=== PATIENT | male | born 1995 | race Caucasian/White ===

== ENCOUNTER 2016-12-03 04:50 | Inpatient (IN) | payer OTHER ==
[~2016-12-03] VITALS: Ht 185.4 cm; Wt 123.6 kg
[~2016-12-03 04:50] MED LIST: ARIP1TAB11 PO; BUSP10 PO; ESCI10TA PO
[2016-12-03 04:51] VITALS: BP 144/83; PULSE 112; RESP 18; TEMP 98; O2SAT 98
[2016-12-03] MEDS ORDERED: ARIP1TAB7 PO (05:10)
[2016-12-03] MEDS ORDERED: BUSP10TA PO (05:10)
[2016-12-03] MEDS ORDERED: PRIL10PO (05:10)
[2016-12-03] MEDS ORDERED: LEXA10TA PO (05:10)
[2016-12-03 07:30] LABS: MEAN CORPUSCULAR HGB CONC 36.4 % (32.0-36.0)
--- NOTE | 2016-12-03 07:33 | PD ---
HPI Chief Complaint: Psychiatric Symptoms Time Seen by Provider: 07:30 Travel History International Travel<30 days: No Contact w/Intl Traveler<30days: No Traveled to known affect area: No History of Present Illness HPI 21-year-old male with a history of schizophrenia presents to the emergency department voluntarily for psychiatric evaluation. The patient states that he' s had a difficult time dealing with the voices in his head recently. States that they do sometimes tell him to harm himself or harm other people. States that he would like to speak with a psychiatrist, states that he may need an adjustment of his medications. He admits to smoking methamphetamines and marijuana about one week ago. Denies alcohol use. Denies IV drug use. He complains of pain in his feet and ankles, denies any injury or trauma. Does admit to walking more recently. Denies any other medical complaints. Denies fever, chills, nausea, vomiting, chest pain, shortness of breath, abdominal pain , numbness or tingling, weakness. PFSH Past Medical History ADD: Yes ADHD: Yes Asthma: Yes Anxiety: Yes Depression: Yes Diminished Hearing: No Gastrointestinal Disorders: Yes ("CONSTIPATION" "WHEN I GET NERVOUS") Genitourinary: Yes Hypertension: Yes Neurologic: Yes (Hx. of T.B.I./A.D.D.) Respiratory: Yes Immunizations Current: Yes Migraines: Yes Schizophrenia: Yes Ulcer: Yes (PAST HX.) Past Surgical History Genitourinary Surgery: Yes Other Surgery: No (PT DOES NOT RESPOND) Social History Alcohol Use: Yes (RARE) Tobacco Use: Yes (3 PPD ) Substance Use: Yes (METH, MARIJUANA, OPIATES, BARBITUATES) Allergies-Medications (Allergen,Severity, Reaction): Coded Allergies: Augmentin (Verified Allergy, Severe, DIARRHEA, 12/03/16) Haldol (Unverified Allergy, Unknown, 12/03/16) Reported Meds & Prescriptions Reported Meds & Active Scripts Active Reported Buspirone (Buspirone HCl) 10 Mg Tab 10 Mg PO TID Prilosec (Omeprazole Magnesium) 10 Mg Pow Lexapro (Escitalopram Oxalate) 10 Mg Tab 15 Mg PO DAILY Abilify (Aripiprazole) 20 Mg Tab 20 Mg PO DAILY Review of Systems Except as stated in HPI: all other systems reviewed are Neg Physical Exam Narrative GENERAL: Well-nourished and well-developed male patient in no acute distress who is nontoxic appearing. SKIN: Warm and dry. HEAD: Normocephalic and atraumatic. EYES: No injection, drainage, or hyphema noted. PERRLA. EOMI. ENT: No nasal drainage noted. Oropharynx is clear. NECK: Supple and the trachea is midline. CARDIOVASCULAR: Regular rate and rhythm. RESPIRATORY: Breath sounds are equal bilaterally with no accessory muscle use, wheezing, rhonchi, or crackles. GASTROINTESTINAL: Abdomen is soft, non-tender, and nondistended. MUSCULOSKELETAL: No obvious deformities, swelling, cyanosis, or ecchymosis is present throughout the upper and lower extremities. Patient has full range of motion without any signs of neurovascular compromise. NEUROLOGICAL: Awake, alert, and oriented. Normal speech and gait. Cranial nerves are grossly intact. Data Data Last Documented VS Vital Signs Date Time Temp Pulse Resp B/P Pulse Ox O2 Delivery O2 Flow Rate FiO2 12/03/16 07:00 16 12/03/16 04:51 98.0 112 144/83 98 Orders Complete Blood Count With Diff (12/03/16 07:29) Comprehensive Metabolic Panel (12/03/16 07:29) Psych Screen (12/03/16 07:29) Drug Screen, Random Urine (12/03/16 07:29) Alcohol (Ethanol) (12/03/16 07:29) Labs Laboratory Tests Test 12/03/16 07:30 White Blood Count 12.7 TH/MM3 Red Blood Count 5.01 MIL/MM3 Hemoglobin 16.1 GM/DL Hematocrit 44.1 % Mean Corpuscular Volume 88.0 FL Mean Corpuscular Hemoglobin 32.0 PG Mean Corpuscular Hemoglobin 36.4 % Concent Red Cell Distribution Width 13.0 % Platelet Count 240 TH/MM3 Mean Platelet Volume 9.2 FL Neutrophils (%) (Auto) 70.2 % Lymphocytes (%) (Auto) 20.7 % Monocytes (%) (Auto) 7.8 % Eosinophils (%) (Auto) 0.7 % Basophils (%) (Auto) 0.6 % Neutrophils # (Auto) 8.9 TH/MM3 Lymphocytes # (Auto) 2.6 TH/MM3 Monocytes # (Auto) 1.0 TH/MM3 Eosinophils # (Auto) 0.1 TH/MM3 Basophils # (Auto) 0.1 TH/MM3 CBC Comment AUTO DIFF Sodium Level 139 MEQ/L Potassium Level 3.6 MEQ/L Chloride Level 105 MEQ/L Carbon Dioxide Level 23.3 MEQ/L Anion Gap 11 MEQ/L Blood Urea Nitrogen 14 MG/DL Creatinine 1.17 MG/DL Estimat Glomerular Filtration 78 ML/MIN Rate Random Glucose 82 MG/DL Calcium Level 8.8 MG/DL Total Bilirubin 0.5 MG/DL Aspartate Amino Transf 48 U/L (AST/SGOT) Alanine Aminotransferase 64 U/L (ALT/SGPT) Alkaline Phosphatase 122 U/L Total Protein 7.8 GM/DL Albumin 4.1 GM/DL Ethyl Alcohol Level LESS THAN 3 MG/DL MDM Medical Decision Making Medical Screen Exam Complete: Yes Emergency Medical Condition: Yes Differential Diagnosis Differential: Depression versus adjustment reaction versus anxiety versus PTSD versus psychosis NOS versus mood disorder NOS versus substance induced mood disorder versus ODD versus adjustment reaction versus schizophrenia versus bipolar disorder versus schizoaffective versus electrolyte abnormality versus dementia versus malingering. Narrative Course Patient presents voluntarily for psychiatric evaluation. He does complain of bilateral feet and ankle pain. Examination is unremarkable, he has full range of motion with no swelling or abnormality noted. Psych screen has been ordered. The laboratory results are unremarkable for any acute abnormalities. The patient is medically cleared for psychiatric evaluation and disposition. Diagnosis Primary Impression: Schizoaffective disorder Qualified Code: F25.9 - Schizoaffective disorder, unspecified type Tricia Johnson Dec 03, 2016 07:33
[2016-12-03 08:10] LABS: AUTOMATED NEUTROPHIL # 8.9 TH/MM3 (1.8-7.7); BASOPHIL # 0.1 TH/MM3 (0-0.2); BASOPHIL % 0.6 % (0.0-2.0); EOSINOPHIL # 0.1 TH/MM3 (0-0.4); EOSINOPHIL % 0.7 % (0.0-4.0); HEMATOCRIT 44.1 % (39.0-51.0); LYMPH % 20.7 % (9.0-44.0); LYMPHOCYTE # 2.6 TH/MM3 (1.0-4.8); MONO % 7.8 % (0.0-8.0); NEUT % 70.2 % (16.0-70.0); PLATELET COUNT 240 TH/MM3 (150-450); RED BLOOD COUNT 5.01 MIL/MM3 (4.50-5.90); WHITE BLOOD COUNT 12.7 TH/MM3 (4.0-11.0)
[2016-12-03 08:13] LABS: HEMO FLAGS AUTO DIFF
[2016-12-03 08:26] LABS: ALKALINE PHOSPHATASE 122 U/L (45-117); TOTAL BILIRUBIN ADULT 0.5 MG/DL (0.2-1.0)
[2016-12-03 08:51] LABS: ALT (GPT) 64 U/L (12-78); ANION GAP 11 MEQ/L (5-15); AST (GOT) 48 U/L (15-37); BICARBONATE 23.3 MEQ/L (21.0-32.0); BLOOD UREA NITROGEN 14 MG/DL (7-18); CHLORIDE 105 MEQ/L (98-107); GLOMERULAR FILTRATION RATE 78 ML/MIN (>89); POTASSIUM 3.6 MEQ/L (3.5-5.1); SODIUM (NA) 139 MEQ/L (136-145)
[2016-12-03 09:06] LABS: SCAN/DIFF AUTO DIFF CONFIRMED
[2016-12-03 10:00] VITALS: BP 136/84; PULSE 84; RESP 18; TEMP 99; O2SAT 98
[2016-12-03 14:00] VITALS: BP 145/68; PULSE 85; RESP 18
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
[2016-12-03] MEDS ORDERED: ALUMINUM/MAGNESIUM/SIMETH 30 ML CUP PO PRN (15:00)
[2016-12-03] MEDS ORDERED: BENZTROPINE MESYLATE 1 MG TAB PO PRN (15:00)
[2016-12-03] MEDS ORDERED: LORazepam 2 MG/ML VIAL IM PRN (15:00)
[2016-12-03] MEDS ORDERED: MAGNESIUM HYDROXIDE SUSP 30 ML CUP PO PRN (15:00)
[2016-12-03] MEDS ORDERED: BENZTROPINE MESYLATE 2 MG/2 ML VIAL IM PRN (15:00)
[2016-12-03] MEDS: busPIRone HCL 10 MG TAB PO SCH (17:59)
[2016-12-03 18:35] VITALS: BP 119/84; PULSE 80; RESP 18; TEMP 98.1; O2SAT 95
[2016-12-03] MEDS: diphenhydrAMINE HCL 50 MG CAP PO PRN (20:05)
[2016-12-03] MEDS: ACETAMINOPHEN 325 MG TAB PO PRN (20:05)
[2016-12-04 04:41] VITALS: BP 114/57; PULSE 77; RESP 18; TEMP 96.9; O2SAT 96
[2016-12-04 07:08] LABS: AUTOMATED NEUTROPHIL # 6.4 TH/MM3 (1.8-7.7); BASOPHIL % 0.3 % (0.0-2.0); EOSINOPHIL # 0.1 TH/MM3 (0-0.4); EOSINOPHIL % 1.2 % (0.0-4.0); HEMATOCRIT 42.9 % (39.0-51.0); HEMO FLAGS DIFF FINAL; LYMPH % 31.8 % (9.0-44.0); LYMPHOCYTE # 3.4 TH/MM3 (1.0-4.8); MEAN CELL VOLUME 87.9 FL (80.0-100.0); MEAN CORPUSCULAR HEMOGLOBIN 30.9 PG (27.0-34.0); MEAN CORPUSCULAR HGB CONC 35.1 % (32.0-36.0); MONO % 6.3 % (0.0-8.0); NEUT % 60.4 % (16.0-70.0); PLATELET COUNT 215 TH/MM3 (150-450); RED BLOOD COUNT 4.87 MIL/MM3 (4.50-5.90); RED CELL DISTRIBUTION WIDTH 13.1 % (11.6-17.2); WHITE BLOOD COUNT 10.6 TH/MM3 (4.0-11.0)
[2016-12-04 07:37] LABS: ANION GAP 10 MEQ/L (5-15); AST (GOT) 24 U/L (15-37); BICARBONATE 24.1 MEQ/L (21.0-32.0); BLOOD UREA NITROGEN 8 MG/DL (7-18); CHLORIDE 108 MEQ/L (98-107); GLOMERULAR FILTRATION RATE 98 ML/MIN (>89); POTASSIUM 3.3 MEQ/L (3.5-5.1); SODIUM (NA) 142 MEQ/L (136-145)
[2016-12-04 07:47] LABS: ALKALINE PHOSPHATASE 109 U/L (45-117); ALT (GPT) 48 U/L (12-78); LDL CHOLESTEROL 116 MG/DL (0-99); TOTAL BILIRUBIN ADULT 0.5 MG/DL (0.2-1.0)
[2016-12-04] MEDS: ESCITALOPRAM OXALATE 10 MG TAB PO SCH (08:43)
[2016-12-04] MEDS: LITHIUM CARBONATE 300 MG TAB PO SCH ×2 (08:43→20:57)
[2016-12-04] MEDS: busPIRone HCL 10 MG TAB PO SCH ×3 (08:43→17:47)
[2016-12-04] MEDS: NICOTINE 21 MG/24 HR PATCH T-DERMAL SCH (09:00)
[2016-12-04] MEDS: REMOVE OLD PATCH T-DERMAL SCH (09:00)
[2016-12-04 09:01] LABS: HEMOGLOBIN A1b 0.9 %; HEMOGLOBIN Ao 86.5 %; HEMOGLOBIN LA1C 1.7 %; HEMOGLOBIN P3 3.4 %
[2016-12-04] MEDS ORDERED: INFLUENZA VIRUS VACCINE (QUADRIVALENT) 0.5 ML SYR IM ONE (10:00)
--- NOTE | 2016-12-04 11:21 | HHI.PYPN ---
Subjective Remarks Patient was seen and case discussed with nursing. Patient is apathetic and a poor historian. Answers most questions with I don't remember. He is compliant with his medications here.'s poor insight into the reasons for his admission. Claims that his auditory hallucinations are gone. Denies any paranoia. Largely seclusive to self. Denies suicidal ideations thought or plan. Potassium was low this morning at 3.3 Objective Alert: Yes [place]: Person, Place, Date Mood: Depressed Affect: Restricted Memory Intact: Immediate Hallucinations: Auditory (denies) Delusions: No Delusion Type: Other Suicidal: Ideation (denies) Homicidal: Ideation Insight/Judgement Poor Labs Test 12/04/16 06:13 White Blood Count 10.6 TH/MM3 Red Blood Count 4.87 MIL/MM3 Hemoglobin 15.0 GM/DL Hematocrit 42.9 % Mean Corpuscular Volume 87.9 FL Mean Corpuscular Hemoglobin 30.9 PG Mean Corpuscular Hemoglobin 35.1 % Concent Red Cell Distribution Width 13.1 % Platelet Count 215 TH/MM3 Mean Platelet Volume 8.0 FL Neutrophils (%) (Auto) 60.4 % Lymphocytes (%) (Auto) 31.8 % Monocytes (%) (Auto) 6.3 % Eosinophils (%) (Auto) 1.2 % Basophils (%) (Auto) 0.3 % Neutrophils # (Auto) 6.4 TH/MM3 Lymphocytes # (Auto) 3.4 TH/MM3 Monocytes # (Auto) 0.7 TH/MM3 Eosinophils # (Auto) 0.1 TH/MM3 Basophils # (Auto) 0.0 TH/MM3 CBC Comment DIFF FINAL Differential Comment Sodium Level 142 MEQ/L Potassium Level 3.3 MEQ/L Chloride Level 108 MEQ/L Carbon Dioxide Level 24.1 MEQ/L Anion Gap 10 MEQ/L Blood Urea Nitrogen 8 MG/DL Creatinine 0.96 MG/DL Estimat Glomerular Filtration 98 ML/MIN Rate Random Glucose 69 MG/DL Hemoglobin A1c 4.9 % Calcium Level 8.9 MG/DL Total Bilirubin 0.5 MG/DL Aspartate Amino Transf 24 U/L (AST/SGOT) Alanine Aminotransferase 48 U/L (ALT/SGPT) Alkaline Phosphatase 109 U/L Total Protein 7.0 GM/DL Albumin 3.7 GM/DL Triglycerides Level 237 MG/DL Cholesterol Level 185 MG/DL LDL Cholesterol 116 MG/DL HDL Cholesterol 22.0 MG/DL Cholesterol/HDL Ratio 8.40 RATIO Thyroid Stimulating Hormone 0.397 uIU/ML 3rd Gen Vitals/IOs Vital Signs Date Time Temp Pulse Resp B/P Pulse Ox O2 Delivery O2 Flow Rate FiO2 12/04/16 04:41 96.9 77 18 114/57 96 12/03/16 10:00 Room Air Assessment & Plan Problem List: (1) Schizoaffective disorder ICD Code: F25.9 (2) Polysubstance dependence ICD Code: F19.20 Assessment & Plan Potassium chloride 20 mEq 1. Repeat potassium at 4 PM. Magnesium level. Consult medicine. Justification for Cont. Inpt. Patient will decompensate in a less restrictive setting Request HC Surrog/Guard Advoc?: No Problem Qualifiers (1) Schizoaffective disorder: Qualified Code: F25.0 - Schizoaffective disorder, bipolar type Zohaib Lackey DO Dec 04, 2016 11:21
[2016-12-04] MEDS ORDERED: POTASSIUM CHLORIDE 20 MEQ CONTROLLED RELEASE TAB PO ONE (11:30)
--- NOTE | 2016-12-04 14:24 | PD.CONS ---
[facility] Reason for Consult Hypokalemia Primary Care Physician Unknown Diagnoses: History of Present Illness This is a 21-year-old male patient with past medical history which includes ADD , ADHD, anxiety/depression, schizophrenia and asthma. Patient is currently inpatient psychiatric center with consulted for hypokalemia. Patient's potassium level is 3.3. Patient is a poor historian information gathered from patient as well as prior computerized charting. Patient evaluated in room resting in bed reports feeling well offers no complaints at this time. Patient denies shortness of breath chest pain nausea vomiting diarrhea. Patient is concerned as he gets constipated when he is nervous and is uncomfortable no psychiatric unit. Patient denies shortness of breath at this time. Patient reports he does not have a rescue inhaler at home but believes he was diagnosed with asthma as a child. Review of Systems Except as stated in HPI: all other systems reviewed are Neg Past Family Social History Allergies: Coded Allergies: Augmentin (Verified Allergy, Severe, DIARRHEA, 12/03/16) Haldol (Unverified Allergy, Unknown, 12/03/16) Past Medical History ADD, ADHD, anxiety/depression, schizophrenia and asthma Past Surgical History Denies prior surgeries Reported Medications Buspirone (Buspirone HCl) 10 Mg Tab 10 Mg PO TID Prilosec (Omeprazole Magnesium) 10 Mg Pow Lexapro (Escitalopram Oxalate) 10 Mg Tab 15 Mg PO DAILY Abilify (Aripiprazole) 20 Mg Tab 20 Mg PO DAILY Active Ordered Medications Current Medications Medications (Trade) Dose Ordered Sig/Cortney Route Start Time Stop Time Status Last Admin (Abilify) 20 mg DAILY PO 12/04/16 09:00 12/04/16 08:43 (Buspar) 10 mg TID PO 12/03/16 18:00 12/04/16 12:40 (Lexapro) 15 mg DAILY PO 12/04/16 09:00 12/04/16 08:43 (Lithotabs) 300 mg Q12HR PO 12/04/16 09:00 12/04/16 08:43 (Ativan) 1 mg Q6H PRN PO 12/03/16 15:00 (Ativan Inj) 1 mg Q6H PRN IM 12/03/16 15:00 (Benadryl) 50 mg HS PRN PO 12/03/16 21:00 12/03/16 20:05 (Tylenol) 650 mg Q4H PRN PO 12/03/16 15:00 12/03/16 20:05 (Milk Of Magnesia Liq) 30 ml DAILY PRN PO 12/03/16 15:00 (Mag-Al Plus Susp Liq) 30 ml Q6H PRN PO 12/03/16 15:00 (Habitrol 21 Mg Patch.24 Hr) 1 patch DAILY T-DERMAL 12/04/16 09:00 (Cogentin) 1 mg Q12H PRN PO 12/03/16 15:00 (Cogentin Inj) 1 mg Q12H PRN IM 12/03/16 15:00 Miscellaneous Information 1 DAILY T-DERMAL 12/04/16 09:00 Family History Denies family medical history Social History Denies EtOH use Tobacco use smokes 2 packs cigarettes a day for the past 2 years Illicit drug use Reports he smokes methamphetamines and marijuana Physical Exam Vital Signs Vital Signs Date Time Temp Pulse Resp B/P Pulse Ox O2 Delivery O2 Flow Rate FiO2 12/04/16 04:41 96.9 77 18 114/57 96 12/03/16 18:35 98.1 80 18 119/84 95 Physical Exam GENERAL: This is an obese 21-year-old male patient, in no apparent distress. SKIN: No rashes, ecchymoses or lesions. Cool and dry. EYES: Extraocular motions intact. No scleral icterus. No injection or drainage. CARDIOVASCULAR: Regular rate and rhythm without murmurs, gallops, or rubs. RESPIRATORY: Few scattered expiratory wheezes GASTROINTESTINAL: Abdomen soft, non-tender, nondistended. No guarding. Bowel sounds present in all 4 quadrants normoactive MUSCULOSKELETAL: Extremities without clubbing, cyanosis, or edema. No joint tenderness, effusion, or edema noted. No calf tenderness. Negative Homans sign bilaterally. NEUROLOGICAL: Awake and alert. No focal deficits appreciated. Motor and sensory grossly within normal limits. Five out of 5 muscle strength in all muscle groups. Normal speech. Laboratory Laboratory Tests Test 12/04/16 06:13 White Blood Count 10.6 Red Blood Count 4.87 Hemoglobin 15.0 Hematocrit 42.9 Mean Corpuscular Volume 87.9 Mean Corpuscular Hemoglobin 30.9 Mean Corpuscular Hemoglobin 35.1 Concent Red Cell Distribution Width 13.1 Platelet Count 215 Mean Platelet Volume 8.0 Neutrophils (%) (Auto) 60.4 Lymphocytes (%) (Auto) 31.8 Monocytes (%) (Auto) 6.3 Eosinophils (%) (Auto) 1.2 Basophils (%) (Auto) 0.3 Neutrophils # (Auto) 6.4 Lymphocytes # (Auto) 3.4 Monocytes # (Auto) 0.7 Eosinophils # (Auto) 0.1 Basophils # (Auto) 0.0 CBC Comment DIFF FINAL Differential Comment Sodium Level 142 Potassium Level 3.3 Chloride Level 108 Carbon Dioxide Level 24.1 Anion Gap 10 Blood Urea Nitrogen 8 Creatinine 0.96 Estimat Glomerular Filtration 98 Rate Random Glucose 69 Hemoglobin A1c 4.9 Calcium Level 8.9 Magnesium Level 2.1 Total Bilirubin 0.5 Aspartate Amino Transf 24 (AST/SGOT) Alanine Aminotransferase 48 (ALT/SGPT) Alkaline Phosphatase 109 Total Protein 7.0 Albumin 3.7 Triglycerides Level 237 Cholesterol Level 185 LDL Cholesterol 116 HDL Cholesterol 22.0 Cholesterol/HDL Ratio 8.40 Thyroid Stimulating Hormone 0.397 3rd Gen Result Diagram: 12/04/1613 12/04/16612 Assessment and Plan Assessment and Plan This is a 21-year-old male patient with past medical history which includes ADD , ADHD, anxiety/depression, schizophrenia and asthma. Patient is currently inpatient psychiatric center with consulted for hypokalemia. Patient's potassium level is 3.3. Hypokalemia potassium 3.3 replaced by psychiatric team with 20 mEq potassium Magnesium checked 2.1 Asthma albuterol inhaler as needed Constipation MiraLAX daily hold for diarrhea or loose stools Tobacco abuse patient counseled encouraged to abstain DVT prophylaxis patient is ambulatory Discussed plan of care with patient RN and Dr. Ruth Patient appears medically stable at this time will sign off- if patient's condition changes or further assistance is needed please reconsult Record patient follow-up with PCP after discharge Discussed Condition With The exam, history, and the medical decision-making described in the above note were completed with the assistance of the mid-level provider. I reviewed and agree with the findings presented. I attest that I had a [id number] encounter with the patient on the same day, and personally performed and documented my assessment and findings in the medical record. Noemi Navarrete Dec 04, 2016 14:24 Scotty Ruth MD Dec 12, 2016 16:05
[2016-12-04] MEDS ORDERED: ALBUTEROL SULFATE 90 MCG/ACT HFA 8 GM INHALER INH PRN (14:30)
[2016-12-04] MEDS: ACETAMINOPHEN 325 MG TAB PO PRN (18:31)
[2016-12-04 18:52] VITALS: BP 131/67; PULSE 82; RESP 16; TEMP 98; O2SAT 97
[2016-12-04] MEDS: diphenhydrAMINE HCL 50 MG CAP PO PRN (20:58)
[2016-12-04] MEDS: LORazepam 1 MG TAB PO PRN (22:51)
[2016-12-05 05:06] VITALS: BP 106/61; PULSE 65; RESP 18; TEMP 97.8; O2SAT 97
[2016-12-05] MEDS: REMOVE OLD PATCH T-DERMAL SCH (08:18)
[2016-12-05] MEDS: NICOTINE 21 MG/24 HR PATCH T-DERMAL SCH (08:18)
[2016-12-05] MEDS: ESCITALOPRAM OXALATE 10 MG TAB PO SCH (08:19)
[2016-12-05] MEDS: busPIRone HCL 10 MG TAB PO SCH (08:19)
[2016-12-05] MEDS: LITHIUM CARBONATE 300 MG TAB PO SCH ×2 (08:19→20:08)
[2016-12-05] MEDS: POLYETHYLENE GLYCOL 17 GM PKG PO SCH (08:24)
--- NOTE | 2016-12-05 10:42 | HHI.PYPN ---
Subjective Remarks Patient seen and examined with nurse. Chart reviewed. Case discussed with nursing staff. On my examination today, the patient reports that his mood feels more stable on lithium. He says that his auditory hallucinations disappeared around yesterday midday. No visual hallucinations or other hallucinatory material. He denies suicidal or homicidal ideation. He does complain of ongoing anxiety and says that he doesn't feel like the BuSpar has ever really helped him. He's tried this medication at a dose of 20 mg 3 times a day before without much additional benefit. He has also tried Klonopin and Atarax without a lot of benefit. We discuss possible strategies for managing ongoing anxiety and settle on off label use of gabapentin. Risks and benefits of this medication discussed with patient. Denies side effects from medications currently. Review of Systems Other No somatic complaints today Objective Alert: Yes [place]: Person, Place, Date Mood: Depressed (improving) Affect: Blunted Memory Intact: Comment (intact on clinical exam) Hallucinations: Other (denies AVH) Delusions: No Delusion Type: Other (no evident delusional material) Suicidal: Ideation (denies suicidal ideation) Homicidal: Ideation (denies homicidal ideation) Insight/Judgement Fair Remarks Thought process linear. Speech within normal limits for rate, tone and volume. No motoric abnormalities noted. Labs Labs reviewed. No new labs. Vitals/IOs Vital Signs Date Time Temp Pulse Resp B/P Pulse Ox O2 Delivery O2 Flow Rate FiO2 12/05/16 05:06 97.8 65 18 106/61 97 12/03/16 10:00 Room Air Assessment & Plan Problem List: (1) Schizoaffective disorder ICD Code: F25.9 (2) Polysubstance dependence ICD Code: F19.20 Assessment & Plan Discontinue BuSpar per patient preference and add gabapentin for management of anxiety. Continue Abilify and Lexapro as ordered. Continue lithium as ordered and plan to check a lithium level and BMP middle of the week. Continue other medications and care as ordered. Hospitalist clinical practice consultant input noted and appreciated. Justification for Cont. Inpt. Monitoring for safety. Medication changes in process. Risk for decompensation pending psychiatric stabilization. Discharge Planning Pending psychiatric stabilization. Request HC Surrog/Guard Advoc?: No Problem Qualifiers (1) Schizoaffective disorder: Qualified Code: F25.0 - Schizoaffective disorder, bipolar type Jae Tucker MD Dec 05, 2016 10:42
[2016-12-05] MEDS: GABAPENTIN 300 MG CAP PO SCH ×2 (12:10→17:09)
[2016-12-05] MEDS: LORazepam 1 MG TAB PO PRN ×2 (14:02→20:07)
[2016-12-05 18:36] VITALS: BP 125/77; PULSE 83; RESP 17; TEMP 98.4; O2SAT 96
[2016-12-05] MEDS: ACETAMINOPHEN 325 MG TAB PO PRN (20:08)
[2016-12-05] MEDS: diphenhydrAMINE HCL 50 MG CAP PO PRN (20:08)
[2016-12-06 05:25] VITALS: BP 126/62; PULSE 70; RESP 18; TEMP 97.2; O2SAT 96
[2016-12-06] MEDS: REMOVE OLD PATCH T-DERMAL SCH (09:00)
[2016-12-06] MEDS: POLYETHYLENE GLYCOL 17 GM PKG PO SCH (09:00)
[2016-12-06] MEDS: ESCITALOPRAM OXALATE 10 MG TAB PO SCH (09:32)
[2016-12-06] MEDS: LITHIUM CARBONATE 300 MG TAB PO SCH ×2 (09:32→20:22)
[2016-12-06] MEDS: GABAPENTIN 300 MG CAP PO SCH ×3 (09:32→18:48)
[2016-12-06] MEDS: NICOTINE 21 MG/24 HR PATCH T-DERMAL SCH (09:33)
--- NOTE | 2016-12-06 14:56 | HHI.PYPN ---
Subjective Remarks Patient seen and examined with counselor. Chart reviewed. Case discussed with counselor and nursing staff in treatment team. On my examination today, the patient reports that he feels much improved. He feels like his mood is stabilized and his anxiety is significantly lessened since the gabapentin was added. He feels like he is on the right medication regimen now. He denies side effects from medications. He denies suicidal or homicidal ideation. He denies any audiovisual hallucinations. There is no evidence of any thought disorder or psychosis otherwise. I did note in the chart that the patient didn' t keep breakfast or lunch today, but he says sometimes it is his habit to take a single large meal, and in fact he requests double portions. Luis was hoping for discharge today but is willing to wait told tomorrow so that we might check a lithium level and communicate with patient's parents regarding discharge planning. Review of Systems Other No somatic complaints today Objective Alert: Yes [place]: Person, Place, Date Mood: Other (reports good mood) Affect: Blunted Memory Intact: Comment (intact on clinical exam) Hallucinations: Other (again denies audiovisual hallucinations) Delusions: No Delusion Type: Other (no delusional material) Suicidal: Ideation (denies suicidal ideation) Homicidal: Ideation (denies homicidal ideation) Insight/Judgement Fair Remarks No abnormal motor movements noted. Thought process linear. Speech within normal limits for rate, tone and volume. Labs Labs reviewed. No new labs. Vitals/IOs Vital Signs Date Time Temp Pulse Resp B/P Pulse Ox O2 Delivery O2 Flow Rate FiO2 12/06/16 05:25 97.2 70 18 126/62 96 12/03/16 10:00 Room Air Assessment & Plan Problem List: (1) Schizoaffective disorder ICD Code: F25.9 (2) Polysubstance dependence ICD Code: F19.20 Assessment & Plan Patient feels like current psychotropics are working well. Continue them as ordered. Check a lithium level and BMP tomorrow morning. Continue other medications and care as ordered. Justification for Cont. Inpt. Discharge planning. Discharge Planning Monitor overnight. Counselor reach out to family. Possible discharge tomorrow. Request HC Surrog/Guard Advoc?: No Problem Qualifiers (1) Schizoaffective disorder: Qualified Code: F25.0 - Schizoaffective disorder, bipolar type Jae Tucker MD Dec 06, 2016 14:56
[2016-12-06] MEDS: ACETAMINOPHEN 325 MG TAB PO PRN (20:22)
[2016-12-07 06:11] VITALS: BP 117/71; PULSE 79; RESP 18; TEMP 98.1; O2SAT 98
[2016-12-07] MEDS: REMOVE OLD PATCH T-DERMAL SCH (09:00)
[2016-12-07] MEDS: POLYETHYLENE GLYCOL 17 GM PKG PO SCH (09:00)
[2016-12-07 09:10] LABS: BICARBONATE 29.2 MEQ/L (21.0-32.0); POTASSIUM 3.9 MEQ/L (3.5-5.1)
[2016-12-07] MEDS: GABAPENTIN 300 MG CAP PO SCH ×2 (09:13→13:19)
[2016-12-07] MEDS: ESCITALOPRAM OXALATE 10 MG TAB PO SCH (09:13)
[2016-12-07] MEDS: NICOTINE 21 MG/24 HR PATCH T-DERMAL SCH (09:14)
[2016-12-07] MEDS: LITHIUM CARBONATE 300 MG TAB PO SCH (09:14)
[2016-12-07] MEDS ORDERED: LITH300T3 PO (14:17)
[2016-12-07] MEDS ORDERED: NEUR300C PO (14:17)
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
== END 2016-12-07 14:50 | disposition home or self-care (01) | DRG 885 ==
LOC: NEPA 04:50 → NEDA 14:46 → H260 15:26
PROVIDERS: ADMIT Psychiatry & Neurology Psychiatry; ATTEND Psychiatry & Neurology Psychiatry
DX: F25.0 Schizoaffective disorder, bipolar type (principal); I10 Essential (primary) hypertension; F90.9 Attention-deficit hyperactivity disorder, unspecified type; E87.6 Hypokalemia; F15.90 Other stimulant use, unspecified, uncomplicated; K59.00 Constipation, unspecified; J45.909 Unspecified asthma, uncomplicated; F41.9 Anxiety disorder, unspecified; F17.210 Nicotine dependence, cigarettes, uncomplicated
CPT/HCPCS: 80048; 80053; 80061; 80178; 80320; 83036; 83735; 84443; 85025; 99284; Q0163

== ENCOUNTER 2017-04-04 16:13 | Inpatient (IN) | payer MEDICAID, OTHER ==
[~2017-04-04] VITALS: Ht 193 cm; Wt 122.2 kg
[~2017-04-04 16:13] MED LIST changes: -ARIP1TAB11 PO; +ARIP1TAB7 PO; -BUSP10 PO; -ESCI10TA PO; +LEXA10TA PO; +LITH300T3 PO; +NEUR300C PO; +PRIL10PO
[2017-04-04 16:16] VITALS: BP 158/100; PULSE 102; RESP 24; TEMP 98.4; O2SAT 97
[2017-04-04 17:20] VITALS: BP 139/86; PULSE 90; RESP 18; O2SAT 97
--- NOTE | 2017-04-04 17:34 | PD ---
HPI Chief Complaint: Psychiatric Symptoms Time Seen by Provider: 17:07 Travel History International Travel<30 days: No Contact w/Intl Traveler<30days: No Traveled to known affect area: No History of Present Illness HPI The patient is a 21-year-old male who presents emergency department with his mother for psychiatric evaluation. The patient has a history of schizophrenia but is intermittently compliant with his medications which include Prozac, Abilify, Neurontin, Prilosec, and lithium. The patient is followed at [facility] by the mid-level provider. The patient has had a change in his voice, some type of accent according to the mother for the last 3 weeks. The patient is also been hearing voices which tell him to harm himself, he has had intermittent thoughts of suicide, last suicidal ideation was just prior to arrival while at home. He denies any illicit drug use or alcohol use. He denies any visual hallucinations. Symptoms are moderate, exacerbated by history of schizophrenia and noncompliance, and there are no current alleviating factors. He denies any current physical complaints. PFSH Past Medical History ADD: Yes ADHD: Yes Asthma: Yes Anxiety: Yes Depression: Yes Diabetes: No (see EMR ) Diminished Hearing: No Gastrointestinal Disorders: Yes ("CONSTIPATION" "WHEN I GET NERVOUS") Genitourinary: Yes Hypertension: Yes Neurologic: Yes (Hx. of T.B.I./A.D.D.) Respiratory: Yes Immunizations Current: Yes Migraines: Yes Schizophrenia: Yes Ulcer: Yes (PAST HX.) Tetanus Vaccination: < 5 Years Influenza Vaccination: Yes Past Surgical History Surgical History: No Previous Surgery Genitourinary Surgery: Yes Social History Alcohol Use: Yes (RARE) Tobacco Use: Yes (3 PPD ) Substance Use: Yes Allergies-Medications (Allergen,Severity, Reaction): Coded Allergies: Augmentin (Verified Allergy, Severe, DIARRHEA, 04/04/17) Haldol (Unverified Allergy, Unknown, 04/04/17) Reported Meds & Prescriptions Reported Meds & Active Scripts Active [place] Carbonate 300 Mg Tab 300 Mg PO Q12HR 15 Days Neurontin (Gabapentin) 300 Mg Cap 300 Mg PO TID 15 Days Reported Prilosec (Omeprazole Magnesium) 10 Mg Pow Lexapro (Escitalopram Oxalate) 10 Mg Tab 15 Mg PO DAILY Abilify (Aripiprazole) 20 Mg Tab 20 Mg PO DAILY Review of Systems Except as stated in HPI: all other systems reviewed are Neg General / Constitutional: No: Fever HENT: No: Lightheadedness Cardiovascular: No: Chest Pain or Discomfort Respiratory: No: Shortness of Breath Gastrointestinal: No: Nausea, Vomiting, Abdominal Pain Musculoskeletal: No: Weakness Psychiatric: Positive: Suicidal Ideations, Disorder of Thought Physical Exam Narrative GENERAL: Awake, alert, pleasant 21-year-old male who appears his stated age and is in no acute respiratory distress. SKIN: Focused skin assessment warm/dry. HEAD: Atraumatic. Normocephalic. EYES: Pupils equal and round. No scleral icterus. No injection or drainage. ENT: No nasal bleeding or discharge. Mucous membranes pink and moist. NECK: Trachea midline. No JVD. CARDIOVASCULAR: Regular rate and rhythm. No murmur appreciated. RESPIRATORY: No accessory muscle use. Clear to auscultation. Breath sounds equal bilaterally. GASTROINTESTINAL: Abdomen soft, non-tender, nondistended. No rebound tenderness. MUSCULOSKELETAL: No obvious deformities. No clubbing. No cyanosis. No edema. NEUROLOGICAL: Awake and alert. No obvious cranial nerve deficits. Motor grossly within normal limits. Normal speech. Nonfocal. PSYCHIATRIC: Odd affect. Accent seems to wax and wane. Data Data Last Documented VS Vital Signs Date Time Temp Pulse Resp B/P Pulse Ox O2 Delivery O2 Flow Rate FiO2 04/04/17 17:20 90 18 139/86 97 Room Air 04/04/17 16:16 98.4 Orders Complete Blood Count With Diff (04/04/17 17:25) Comprehensive Metabolic Panel (04/04/17 17:25) Thyroid Stimulating Hormone (04/04/17 17:25) Psych Screen (04/04/17 17:25) Ismay (Li) (04/04/17 17:25) Drug Screen, Random Urine (04/04/17 17:25) Labs Laboratory Tests Test 04/04/17 04/04/17 17:25 17:35 White Blood Count 11.7 TH/MM3 Red Blood Count 5.36 MIL/MM3 Hemoglobin 16.4 GM/DL Hematocrit 48.0 % Mean Corpuscular Volume 89.6 FL Mean Corpuscular Hemoglobin 30.6 PG Mean Corpuscular Hemoglobin 34.1 % Concent Red Cell Distribution Width 13.3 % Platelet Count 256 TH/MM3 Mean Platelet Volume 8.3 FL Neutrophils (%) (Auto) 73.0 % Lymphocytes (%) (Auto) 18.4 % Monocytes (%) (Auto) 7.5 % Eosinophils (%) (Auto) 0.8 % Basophils (%) (Auto) 0.3 % Neutrophils # (Auto) 8.6 TH/MM3 Lymphocytes # (Auto) 2.2 TH/MM3 Monocytes # (Auto) 0.9 TH/MM3 Eosinophils # (Auto) 0.1 TH/MM3 Basophils # (Auto) 0.0 TH/MM3 CBC Comment DIFF FINAL Differential Comment Sodium Level 140 MEQ/L Potassium Level 3.7 MEQ/L Chloride Level 105 MEQ/L Carbon Dioxide Level 27.8 MEQ/L Anion Gap 7 MEQ/L Blood Urea Nitrogen 12 MG/DL Creatinine 1.01 MG/DL Estimat Glomerular Filtration 92 ML/MIN Rate Random Glucose 77 MG/DL Calcium Level 9.5 MG/DL Aspartate Amino Transf 23 U/L (AST/SGOT) Alanine Aminotransferase 38 U/L (ALT/SGPT) Albumin 4.3 GM/DL Urine Opiates Screen NEG Urine Barbiturates Screen NEG Urine Amphetamines Screen NEG Urine Benzodiazepines Screen NEG Urine Cocaine Screen NEG Urine Cannabinoids Screen POS [place]may Level 0.2 MEQ/L MDM Medical Decision Making Medical Screen Exam Complete: Yes Emergency Medical Condition: Yes Medical Record Reviewed: Yes Interpretation(s) Laboratory Tests Test 04/04/17 04/04/17 17:25 17:35 White Blood Count 11.7 TH/MM3 Red Blood Count 5.36 MIL/MM3 Hemoglobin 16.4 GM/DL Hematocrit 48.0 % Mean Corpuscular Volume 89.6 FL Mean Corpuscular Hemoglobin 30.6 PG Mean Corpuscular Hemoglobin 34.1 % Concent Red Cell Distribution Width 13.3 % Platelet Count 256 TH/MM3 Mean Platelet Volume 8.3 FL Neutrophils (%) (Auto) 73.0 % Lymphocytes (%) (Auto) 18.4 % Monocytes (%) (Auto) 7.5 % Eosinophils (%) (Auto) 0.8 % Basophils (%) (Auto) 0.3 % Neutrophils # (Auto) 8.6 TH/MM3 Lymphocytes # (Auto) 2.2 TH/MM3 Monocytes # (Auto) 0.9 TH/MM3 Eosinophils # (Auto) 0.1 TH/MM3 Basophils # (Auto) 0.0 TH/MM3 CBC Comment DIFF FINAL Differential Comment Sodium Level 140 MEQ/L Potassium Level 3.7 MEQ/L Chloride Level 105 MEQ/L Carbon Dioxide Level 27.8 MEQ/L Anion Gap 7 MEQ/L Blood Urea Nitrogen 12 MG/DL Creatinine 1.01 MG/DL Estimat Glomerular Filtration 92 ML/MIN Rate Random Glucose 77 MG/DL Calcium Level 9.5 MG/DL Aspartate Amino Transf 23 U/L (AST/SGOT) Alanine Aminotransferase 38 U/L (ALT/SGPT) Albumin 4.3 GM/DL Urine Opiates Screen NEG Urine Barbiturates Screen NEG Urine Amphetamines Screen NEG Urine Benzodiazepines Screen NEG Urine Cocaine Screen NEG Urine Cannabinoids Screen POS Ismay Level 0.2 MEQ/L Differential Diagnosis Differential diagnosis includes schizophrenia, schizoaffective disorder, psychosis, noncompliance, subtherapeutic lithium level, supratherapeutic lithium level. Narrative Course Labs were drawn and sent. Psychiatric evaluation was ordered. The patient's labs were noted, positive for marijuana, and lithium was subtherapeutic at 0.2. The patient is medically clear to be evaluated by psychiatry. Disposition as per psych. Diagnosis Primary Impression: Schizophrenia Qualified Code: F20.89 - Other schizophrenia Condition: Stable Charles Leone MD Apr 04, 2017 17:34
[2017-04-04 18:00] LABS: AUTOMATED NEUTROPHIL # 8.6 TH/MM3 (1.8-7.7); BASOPHIL % 0.3 % (0.0-2.0); EOSINOPHIL # 0.1 TH/MM3 (0-0.4); EOSINOPHIL % 0.8 % (0.0-4.0); HEMO FLAGS DIFF FINAL; LYMPH % 18.4 % (9.0-44.0); LYMPHOCYTE # 2.2 TH/MM3 (1.0-4.8); MEAN CELL VOLUME 89.6 FL (80.0-100.0); MEAN CORPUSCULAR HEMOGLOBIN 30.6 PG (27.0-34.0); MEAN CORPUSCULAR HGB CONC 34.1 % (32.0-36.0); MONO % 7.5 % (0.0-8.0); PLATELET COUNT 256 TH/MM3 (150-450); RED BLOOD COUNT 5.36 MIL/MM3 (4.50-5.90); RED CELL DISTRIBUTION WIDTH 13.3 % (11.6-17.2); WHITE BLOOD COUNT 11.7 TH/MM3 (4.0-11.0)
[2017-04-04 18:10] LABS: AMPHETAMINE, URINE NEG (NEG); BARBITURATES, URINE NEG (NEG); COCAINE, URINE NEG (NEG)
[2017-04-04 18:30] LABS: ALT (GPT) 38 U/L (12-78); ANION GAP 7 MEQ/L (5-15); AST (GOT) 23 U/L (15-37); BICARBONATE 27.8 MEQ/L (21.0-32.0); BLOOD UREA NITROGEN 12 MG/DL (7-18); CHLORIDE 105 MEQ/L (98-107); GLOMERULAR FILTRATION RATE 92 ML/MIN (>89); POTASSIUM 3.7 MEQ/L (3.5-5.1); SODIUM (NA) 140 MEQ/L (136-145)
[2017-04-04 18:40] LABS: ALKALINE PHOSPHATASE 115 U/L (45-117); TOTAL BILIRUBIN ADULT 0.4 MG/DL (0.2-1.0)
[2017-04-04 20:09] VITALS: BP 147/84; PULSE 80; RESP 17; TEMP 97; O2SAT 97
[2017-04-04 22:04] VITALS: BP 139/88; PULSE 80; RESP 18; TEMP 98.9; O2SAT 96
[2017-04-05 01:42] VITALS: BP 134/89; PULSE 85; RESP 18; TEMP 98.7; O2SAT 94
[2017-04-05 05:40] VITALS: BP 128/73; PULSE 84; RESP 18; TEMP 98.3; O2SAT 96
[2017-04-05] MEDS ORDERED: MAGNESIUM HYDROXIDE SUSP 30 ML CUP PO PRN (08:30)
[2017-04-05] MEDS ORDERED: diphenhydrAMINE HCL 50 MG CAP PO PRN (08:30)
[2017-04-05] MEDS ORDERED: ACETAMINOPHEN 325 MG TAB PO PRN (08:30)
[2017-04-05] MEDS ORDERED: ALUMINUM/MAGNESIUM/SIMETH 30 ML CUP PO PRN (08:30)
[2017-04-05] MEDS ORDERED: PILL SPLITTER OTHER PRN (08:45)
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
[2017-04-05] MEDS: GABAPENTIN 300 MG CAP PO SCH ×3 (09:00→18:00)
[2017-04-05] MEDS: ESCITALOPRAM OXALATE 10 MG TAB PO SCH (09:00)
[2017-04-05] MEDS: LITHIUM CARBONATE 300 MG TAB PO SCH ×2 (09:00→21:00)
[2017-04-05 09:50] VITALS: BP 137/84; PULSE 75; RESP 16; TEMP 98.4; O2SAT 96
[2017-04-05 18:03] VITALS: BP 133/60; PULSE 86; RESP 17; TEMP 98.4; O2SAT 98
[2017-04-06 05:32] VITALS: BP_SYST 111; BP_SYST 116; BP_DIAS 58; BP_DIAS 71; PULSE 77; PULSE 78; RESP 16; TEMP 97.9; TEMP 98.6; O2SAT 95; O2SAT 99
[2017-04-06] MEDS: GABAPENTIN 300 MG CAP PO SCH ×3 (09:01→17:30)
[2017-04-06] MEDS: ESCITALOPRAM OXALATE 10 MG TAB PO SCH (09:01)
[2017-04-06] MEDS: LITHIUM CARBONATE 300 MG TAB PO SCH ×2 (09:01→20:56)
--- NOTE | 2017-04-06 10:58 | HHI.PYPN ---
Subjective Remarks Patient seen in his room. With nurse Katie. Chart reviewed. Patient compliant medication. Patient continues to gain somewhat of a foreign accent since is feeling better today, slept well last night, the voices are somewhat less. Staff. The patient's mother she wishes to meet with us. We'll meet with her tomorrow morning at 9 AM Review of Systems Except as stated in HPI: all other systems reviewed are Neg Objective Alert: Yes [place]: Person, Place Mood: Calm, Depressed Affect: Blunted Memory Intact: Comment (fair) Hallucinations: Auditory (vague) Delusions: Yes Delusion Type: Paranoid (vague) Suicidal: Ideation (denies) Homicidal: Ideation (denies) Insight/Judgment Poor Vitals/IOs Vital Signs Date Time Temp Pulse Resp B/P Pulse Ox O2 Delivery O2 Flow Rate FiO2 04/06/17 05:32 97.9 78 16 116/71 95 04/05/17 05:40 Room Air Intake and Output 04/05/17 04/05/17 04/06/17 08:00 16:00 00:00 Intake Total 240 ml Balance 240 ml Assessment & Plan Problem List: (1) Paranoid type schizophrenia, chronic state with acute exacerbation ICD Code: F20.0 Assessment & Plan Estimated LOS: days patient continue psychotic marked psychomotor retardation, for now continue treatment plan to meet with patient's mother tomorrow morning 9 AM Justification for Cont. Inpt. At this time patient decompensate placed in a lower level of care Discharge Planning To be determined Request HC Surrog/Guard Advoc?: No Cristofer Rao MD Apr 06, 2017 10:58
[2017-04-06 11:25] LABS: ANION GAP 12 MEQ/L (5-15); AST (GOT) 18 U/L (15-37); BICARBONATE 24.1 MEQ/L (21.0-32.0); BLOOD UREA NITROGEN 11 MG/DL (7-18); CHLORIDE 104 MEQ/L (98-107); GLOMERULAR FILTRATION RATE 107 ML/MIN (>89); SODIUM (NA) 140 MEQ/L (136-145)
[2017-04-06 11:26] LABS: ALT (GPT) 35 U/L (12-78)
[2017-04-06 11:29] LABS: HDL CHOLESTEROL 21.7 MG/DL (40.0-60.0); LDL CHOLESTEROL 117 MG/DL (0-99)
[2017-04-06 11:36] LABS: ALKALINE PHOSPHATASE 106 U/L (45-117); FREE T4 1.32 NG/DL (0.76-1.46); TOTAL BILIRUBIN ADULT 0.7 MG/DL (0.2-1.0)
[2017-04-06 16:41] LABS: HEMOGLOBIN A1b 0.8 %; HEMOGLOBIN Ao 86.5 %; HEMOGLOBIN F 1.1 %; HEMOGLOBIN LA1C 1.7 %; HEMOGLOBIN P3 3.3 %
[2017-04-07 05:30] VITALS: BP 125/78; PULSE 78; RESP 17; TEMP 98.2; O2SAT 95
[2017-04-07] MEDS: GABAPENTIN 300 MG CAP PO SCH ×3 (09:13→18:00)
[2017-04-07] MEDS: LITHIUM CARBONATE 300 MG TAB PO SCH ×2 (09:13→20:49)
[2017-04-07] MEDS: ESCITALOPRAM OXALATE 10 MG TAB PO SCH (09:13)
--- NOTE | 2017-04-07 11:31 | HHI.PYPN ---
Subjective Remarks That the patient's mother for approximately 30 minutes discussing patient's diagnosis treatment medications counseling mother about boundaries and possible long-term placement issues. Patient then came in the room the discussed our plans with him the acknowledges persistent voices but diminishing in intensity and frequency. He does denies suicidality homicidality. He is compliant with his medications. His mother appears quite supportive involved with this treatment. There is an overwhelming history of mental health issues in both sides of the family. Considering the fact that the patient has had some noncompliance issues with medication we will order an Abilify maintaina to be given on Monday 04/09. Will also be re-checking patients lithium level on 04/09. Mother does wish her son to be returned home perhaps the first part of next week Review of Systems Except as stated in HPI: all other systems reviewed are Neg Objective Alert: Yes [place]: Person, Place Mood: Calm, Depressed Affect: Blunted Memory Intact: Comment (fair) Hallucinations: Auditory (vague) Delusions: Yes Delusion Type: Paranoid (vague) Suicidal: Ideation (denies) Homicidal: Ideation (denies) Insight/Judgment Poor Vitals/IOs Vital Signs Date Time Temp Pulse Resp B/P Pulse Ox O2 Delivery O2 Flow Rate FiO2 04/07/17 05:30 98.2 78 17 125/78 95 04/05/17 05:40 Room Air Assessment & Plan Problem List: (1) Paranoid type schizophrenia, chronic state with acute exacerbation ICD Code: F20.0 Assessment & Plan Estimated LOS: days patient remains somewhat psychotic and paranoid though softer. She medication adjustments above did meet with patient's mother for a family session Justification for Cont. Inpt. At this time patient will decompensate then placed in a lower level of care Discharge Planning To be determined Request HC Surrog/Guard Advoc?: No Cristofer Rao MD Apr 07, 2017 11:31
[2017-04-07] MEDS: hydrOXYzine HCL 50 MG TAB PO PRN ×2 (18:44→20:49)
[2017-04-07 19:27] VITALS: BP 147/87; PULSE 88; RESP 18; TEMP 97.4; O2SAT 98
[2017-04-08 06:21] VITALS: BP 115/61; PULSE 84; RESP 18; TEMP 97.7; O2SAT 97
[2017-04-08] MEDS: LITHIUM CARBONATE 300 MG TAB PO SCH ×2 (08:34→21:05)
[2017-04-08] MEDS: ESCITALOPRAM OXALATE 10 MG TAB PO SCH (08:34)
[2017-04-08] MEDS: GABAPENTIN 300 MG CAP PO SCH ×3 (08:34→18:15)
--- NOTE | 2017-04-08 15:19 | HHI.PYPN ---
Subjective Remarks Patient was seen and case discussed with nursing. Per nursing patient is seen talking to himself responding to internal stimuli. Patient admits to auditory hallucinations that are good and mood congruent. Feeling "stable." Denies suicidal ideation intent or plan Objective Alert: Yes [place]: Person, Place Mood: Calm Affect: Restricted Memory Intact: Comment (fair) Hallucinations: Auditory (denies) Delusions: Yes Delusion Type: Paranoid (vague) Suicidal: Ideation (denies) Homicidal: Ideation (denies) Insight/Judgment Fair Vitals/IOs Vital Signs Date Time Temp Pulse Resp B/P Pulse Ox O2 Delivery O2 Flow Rate FiO2 04/08/17 06:21 97.7 84 18 115/61 97 04/05/17 05:40 Room Air Intake and Output 04/07/17 04/07/17 04/08/17 08:00 16:00 00:00 Intake Total 240 ml Balance 240 ml Assessment & Plan Problem List: (1) Paranoid type schizophrenia, chronic state with acute exacerbation ICD Code: F20.0 Assessment & Plan Continue current treatment plan Justification for Cont. Inpt. Patient will decompensate in a less restrictive setting Request HC Surrog/Guard Advoc?: No Zohaib Lackey DO Apr 08, 2017 15:19
[2017-04-08 18:00] VITALS: BP 148/78; PULSE 113; RESP 18; TEMP 98; O2SAT 98
[2017-04-08 19:18] LABS: BLOOD, URINE NEG (NEG); COMMENT (UR) CULT NOT INDICATED; CULTURE IF INDICATED CULT NOT INDICATED; GLUCOSE,URINE NEG (NEG); HYALINE CAST, URINE 1 /lpf (RARE); KETONE, URINE NEG (NEG); MUCUS URINE FEW /lpf (OCC); NITRITE,URINE NEG (NEG); PH, URINE 5.5 (5.0-8.5); SQUAMOUS EPITHELIAL CELL URINE <1 /hpf (0-5); URINE COLOR YELLOW (YELLW/STRAW)
[2017-04-08] MEDS: hydrOXYzine HCL 50 MG TAB PO PRN (21:05)
[2017-04-09 05:52] VITALS: BP 107/76; PULSE 72; RESP 18; TEMP 97.3; O2SAT 97
[2017-04-09] MEDS ORDERED: ARIPIPRAZOLE 400 MG IM SCH (08:00)
[2017-04-09] MEDS: GABAPENTIN 300 MG CAP PO SCH ×3 (08:15→17:15)
[2017-04-09] MEDS: LITHIUM CARBONATE 300 MG TAB PO SCH ×2 (08:15→21:18)
[2017-04-09] MEDS: ESCITALOPRAM OXALATE 10 MG TAB PO SCH (08:16)
--- NOTE | 2017-04-09 14:55 | HHI.PYPN ---
Subjective Remarks Patient was seen and case discussed with nursing. [place] level 0.6. Patient remains blunted but pleasant. He denies auditory visual hallucinations. Has less of his bizarre accent. Says he has received a CT in the past. He is tolerating his invegga sustenna well Objective Alert: Yes [place]: Person, Place Mood: Calm Affect: Restricted Memory Intact: Comment (fair) Hallucinations: Auditory (denies) Delusions: Yes Delusion Type: Paranoid (vague) Suicidal: Ideation (denies) Homicidal: Ideation (denies) Insight/Judgment Poor Labs Test 04/08/17 04/09/17 17:00 09:34 Urine Color YELLOW Urine Turbidity HAZY Urine pH 5.5 Urine Specific [place] 1.026 Urine Protein 30 mg/dL Urine Glucose (UA) NEG mg/dL Urine Ketones NEG mg/dL Urine Occult Blood NEG Urine Nitrite NEG Urine Bilirubin NEG Urine Urobilinogen LESS THAN 2.0 MG/DL Urine Leukocyte Esterase NEG Urine RBC LESS THAN 1 /hpf Urine WBC 2 /hpf Urine Squamous Epithelial <1 /hpf Cells Urine Hyaline Casts 1 /lpf Urine Mucus FEW /lpf Urine Sperm RARE Microscopic Urinalysis Comment CULT NOT INDICATED [place] Level 0.6 MEQ/L Vitals/IOs Vital Signs Date Time Temp Pulse Resp B/P Pulse Ox O2 Delivery O2 Flow Rate FiO2 04/09/17 05:52 97.3 72 18 107/76 97 Assessment & Plan Problem List: (1) Paranoid type schizophrenia, chronic state with acute exacerbation ICD Code: F20.0 Assessment & Plan Continue current treatment plan Justification for Cont. Inpt. Patient will decompensate in a less restrictive setting Request HC Surrog/Guard Advoc?: No Zohaib Lackey DO Apr 09, 2017 14:55
[2017-04-09 15:46] VITALS: BP 122/77; PULSE 77; RESP 18; TEMP 98.1; O2SAT 97
[2017-04-09] MEDS: hydrOXYzine HCL 50 MG TAB PO PRN (22:47)
[2017-04-10 05:55] VITALS: BP 110/64; PULSE 68; RESP 16; TEMP 97.2; O2SAT 98
[2017-04-10] MEDS: ESCITALOPRAM OXALATE 10 MG TAB PO SCH (08:36)
[2017-04-10] MEDS: GABAPENTIN 300 MG CAP PO SCH ×3 (08:36→18:00)
[2017-04-10] MEDS: LITHIUM CARBONATE 300 MG TAB PO SCH (08:36)
--- NOTE | 2017-04-10 13:23 | HHI.PYPN ---
Subjective Remarks Patient seen in the [facility] with nurse Justin and medical student Lalo, chart reviewed. [place] level on 04/07 was 0.6 on 300 mg twice a day. We'll increase lithium to 300 mg a.m. 600 mg at bedtime check a level in 4 days. Otherwise patient continues his be somewhat distracted responding to internal stimuli responses are also delayed. Acknowledging continued auditory hallucinations Review of Systems Except as stated in HPI: all other systems reviewed are Neg Objective Alert: Yes [place]: Person, Place Mood: Calm Affect: Restricted Memory Intact: Comment (fair) Hallucinations: Auditory (denies) Delusions: Yes Delusion Type: Paranoid (vague) Suicidal: Ideation (denies) Homicidal: Ideation (denies) Insight/Judgment Poor Vitals/IOs Vital Signs Date Time Temp Pulse Resp B/P Pulse Ox O2 Delivery O2 Flow Rate FiO2 04/10/17 05:55 97.2 68 16 110/64 98 Assessment & Plan Problem List: (1) Paranoid type schizophrenia, chronic state with acute exacerbation ICD Code: F20.0 Assessment & Plan Estimated LOS: days patient remained psychotic somewhat vigilant. Continued auditory hallucinations. See medication adjustment above Justification for Cont. Inpt. At this time patient will decompensate if placed in a lower level of care Discharge Planning To be determined Request HC Surrog/Guard Advoc?: No Cristofer Rao MD Apr 10, 2017 13:23
--- NOTE | 2017-04-10 15:00 | PD.TTN ---
Patient Problems 1. Discharge planning 2. Medication compliance 3. Knowledge deficit 4. Lack of coping skills Progress Toward Goals Provider Input: Dr. Rao's treatment team met to discuss patient's treatment plan, medication and discharge plan. Patient received his injection yesterday. Patient continues to present delusional and distracted with internal stimulation. [place] will be increased. Psych Therapist Input: Patient presents pleasant, cooperative but constricted, affect blunted. Patient presents internally stimulated. Patient continues to speak in an accent. Patient makes fair eye contact. Patient's speech is clear, disorganized, tone and rate are within the normal limits, volume is low. Patient denies suicidal and homicidal ideation. Patient is medication compliant, eating and sleeping well. Patient will return home once discharged. Patient follows up with Marge Membreno Apr 10, 2017 15:00
[2017-04-10] MEDS: hydrOXYzine HCL 50 MG TAB PO PRN (17:16)
[2017-04-10 18:00] VITALS: BP 123/70; PULSE 77; RESP 16; TEMP 98.2; O2SAT 98
[2017-04-10] MEDS ORDERED: LITHIUM CARBONATE 300 MG TAB PO SCH (21:00)
[2017-04-11 06:27] VITALS: BP 110/61; PULSE 63; RESP 18; TEMP 97.9; O2SAT 97
[2017-04-11] MEDS ORDERED: LITHIUM CARBONATE 300 MG TAB PO SCH (09:00)
[2017-04-11] MEDS: GABAPENTIN 300 MG CAP PO SCH ×2 (09:06→13:10)
[2017-04-11] MEDS: ESCITALOPRAM OXALATE 10 MG TAB PO SCH (09:06)
[2017-04-11] MEDS ORDERED: LEXA20TA PO (13:10)
[2017-04-11] MEDS ORDERED: NEUR300C PO (13:10)
[2017-04-11] MEDS ORDERED: LITH300T3 PO (13:10)
[2017-04-11] MEDS ORDERED: ARIP1TAB7 PO (13:10)
--- NOTE | 2017-04-11 13:17 | HHI.DS ---
Psychiatry Discharge Summary Inpatient Psychiatric care?: Yes Advance Directive: No Reason Not Provided: Due to Patient Condition Mental Health AdvanceDirective: No Health Care Proxy: No Admission Admission Date Apr 05, 2017 at 08:34 Admission Diagnosis: (1) Paranoid type schizophrenia, chronic state with acute exacerbation ICD Code: F20.0 Brief History Patient is a 21-year-old white male who comes here voluntarily complaining of increase auditory hallucinations of a command nature with suicidal ideation. Review of EMR patient's had multiple visits here for various mental health issues most recent being in November of this year admitted under Dr. Jae Tucker the diagnosis schizoaffective disorder discharged from his family. Patient is followed by [place] through [facility] outpatient services. Patient presenting somewhat diffusely confused vaguely contradictory and is statements. Somewhat reluctantly acknowledging misuse of her forgetting to take his medication but he states he smokes marijuana daily he show some vague confusion with his orientation though he does know isn't [facility] visits 2017 he is aware of his long history there is been on multiple medications in the past. He appears to be tender controlled medications he takes requesting intramuscular Abilify. Question the need for lithium. He acknowledges auditory hallucinations of a command nature telling him to harm himself. The does not appear to be any visual component to this. He states he lives with his mother father and older brother that they have a contentious relationship. Denies alcohol use or other drug use. Though the documentation from November of this year shows a history of methamphetamine abuse. When asked about physical or sexual abuse the patient became somewhat vague confusing mentioning his auditory hallucinations. He also is vague about if there is mental health history of his family. His vague about his educational status also. Stating he can read okay but is difficult time with numbers. In any event at the present time patient does meet criteria for an inpatient psychiatric assessment a medication reevaluation. He is here voluntarily is willing to stay in a voluntary basis thus we'll continue him on a voluntary basis. We'll continue his medications per the med reconciliation lithium level in the ED was only 0.2 so there is appliance issues with that also. Into need contact the patient's family to gain further information about the situation and the home. Hopefully severe fairly short stay and we can return to follow through [facility] act and return to his family Tobacco Use In Past 30 Days: No Tobacco Past 30 Days Alcohol Use: Never Hospital Course Patient's initial isolation with paranoia and auditory hallucinations gradually soften as he participated in the milieu, show compliance with his medication. He was no behavioral problems. Patient seen today with nurse Lewis and medical student Rogerio. He now denies suicidality homicidality voices or visions. Though at times she still appears to be responding to some internal stimuli. However at this time I feel patient increase the maximum benefit of this hospitalization. Patient mother has been active with his care. She feels ready to take him home to continue his recovery. Thus patient will be discharged today to his family. Rx 1 month. Follow-up [facility] act Results Blood Pressure 110 / 61 Vital Signs Date Time Temp Pulse Resp B/P Pulse Ox O2 Delivery O2 Flow Rate FiO2 04/11/17 06:27 97.9 63 18 110/61 97 Laboratory Tests Test 04/08/17 17:00 Urine Turbidity HAZY (CLEAR) Urine Protein 30 mg/dL (NEG-TRACE) Urine Mucus FEW /lpf (OCC) Urine Sperm RARE (NONE) Laboratory Results Test 04/09/17 09:34 [place] Level 0.6 MEQ/L (0.5-1.5) Summary of Procedures None done Pending results at discharge: No Medications # of Antipsychotic meds at D/C: 1 Approp Antipsych med options 1 - Minimum of three failed multiple trials of monotherapy. 2 - Documented plan to taper to monotherapy due to previous use of multiple meds OR cross-taper in progress at D/C. 3 - Documentation of augmentation of Clozapine. 4 - Justification other than those listed in allowable values 1-3, document here : Discharge Discharge Date: Apr 11, 2017 Discharge Diagnosis: (1) Paranoid type schizophrenia, chronic state with acute exacerbation Diagnosis: Principal ICD Code: F20.0 Mental Status Exam at Disch Alert oriented stockily built white male calm cooperative. He is normal active , his mood is euthymic to somewhat restricted with decreased range intensity of his affect. Speech rate and rhythm is somewhat slow but goal oriented there are no formal thought disorders. There are no auditory or visual hallucinations no delusions noted. Though at times she still appears to be responding to internal stimuli. Insight and judgment is poor to fair cognition grossly intact Pt Condition on Discharge: Stable Discharge Disposition: Discharge Home Discharge Instructions Diet Instructions: As Tolerated, No Restrictions Activities you can perform: Regular-No Restrictions Scheduled Appointment: [facility] Appointment Date: Apr 12, 2017 Appointment Time: 7:30am Discharge Time <= 30 minutes Discharge/Advance Care Plan Health Problems: (1) Paranoid type schizophrenia, chronic state with acute exacerbation Goals to promote your health * To prevent worsening of your condition and complications * To maintain your health at the optimal level Directions to meet your goals Take your medications as prescribed Follow your dietary instruction Follow activity as directed Keep your appointments as scheduled Take your immunizations and boosters as scheduled If your symptoms worsen call your PCP, if no PCP go to Urgent Care Center or Emergency Room For 15/05 questions related to your inpatient stay or results of tests pending at discharge, please contact Dr. Cristofer Rao at Smoking is Dangerous to Your Health. Avoid second hand smoking Cristofer Rao MD Apr 11, 2017 13:16
== END 2017-04-11 15:25 | disposition home or self-care (01) | DRG 885 ==
LOC: NEPE 16:13 → NEDA 04-05 08:34 → H260 04-05 09:20
PROVIDERS: ADMIT Psychiatry & Neurology Psychiatry; ATTEND Psychiatry & Neurology Psychiatry
DX: F20.0 Paranoid schizophrenia (principal); R45.851 Suicidal ideations; Z91.19 Patient's noncompliance with other medical treatment and regimen; F41.9 Anxiety disorder, unspecified; J45.909 Unspecified asthma, uncomplicated; F17.210 Nicotine dependence, cigarettes, uncomplicated; F12.10 Cannabis abuse, uncomplicated; F15.10 Other stimulant abuse, uncomplicated
CPT/HCPCS: 80053; 80061; 80178; 80307; 81001; 83036; 84439; 84443; 85025; Q0163

== ENCOUNTER 2017-08-03 03:28 | Inpatient (IN) | payer MEDICAID, OTHER ==
[~2017-08-03] VITALS: Ht 185.4 cm; Wt 124.8 kg
[~2017-08-03 03:28] MED LIST changes: +LEXA20TA PO
[2017-08-03 03:29] VITALS: BP 144/80; PULSE 86; RESP 16; TEMP 98.8; O2SAT 96
[2017-08-03] MEDS ORDERED: ARIP10IN IM (03:48)
--- NOTE | 2017-08-03 03:54 | PD ---
HPI Chief Complaint: Psychiatric Symptoms Time Seen by Provider: 03:40 Travel History International Travel<30 days: No Contact w/Intl Traveler<30days: No Traveled to known affect area: No History of Present Illness HPI 22-year-old white male presents to emergency department on a voluntary basis for psychological evaluation. Patient states that he has a history of schizophrenia and substance abuse. He's been having worsening problems at home. He states that his parents are constantly arguing and complaining that he is useless and non-motivated. The patient has been self-medicating with crack cocaine. He claims that he's been compliant with his medications. He's been feeling increasingly depressed and having suicidal thoughts. The patient states that he has a plan on self-harm but will not elaborate. He denies any homicidal ideation. No toxic ingestions. He does admit to having increasing visual and auditory hallucinations.The patient states that he is seeing shadows and hearing people talk . PFSH Past Medical History ADD: Yes ADHD: Yes Asthma: Yes Anxiety: Yes Depression: Yes Diabetes: No (see EMR ) Diminished Hearing: No Gastrointestinal Disorders: Yes ("CONSTIPATION" "WHEN I GET NERVOUS") Genitourinary: Yes Hypertension: Yes Neurologic: Yes (Hx. of T.B.I.) Respiratory: Yes Immunizations Current: Yes Migraines: Yes Schizophrenia: Yes Ulcer: Yes (PAST HX.) Past Surgical History Surgical History: No Previous Surgery Genitourinary Surgery: Yes Social History Alcohol Use: Yes (RARE) Tobacco Use: Yes (1 PPD ) Substance Use: Yes (MARIJUANA) Allergies-Medications (Allergen,Severity, Reaction): Coded Allergies: amoxicillin (Unverified Allergy, Severe, DIARRHEA, 08/03/17) clavulanic acid (Unverified Allergy, Severe, DIARRHEA, 08/03/17) haloperidol (Unverified Allergy, Unknown, 08/03/17) Reported Meds & Prescriptions Reported Meds & Active Scripts Active Lexapro (Escitalopram Oxalate) 20 Mg Tab 20 Mg PO DAILY [place] Carbonate 300 Mg Tab 300 Mg PO Q12HR 15 Days Neurontin (Gabapentin) 300 Mg Cap 300 Mg PO TID 15 Days Reported [place] Maintena Dual Chamber Inj (Aripiprazole) 400 Mg Inj 400 Mg IM EVERY 2 MONTHS Review of Systems Except as stated in HPI: all other systems reviewed are Neg Psychiatric: Positive: Depression, Suicidal Ideations, Disorder of Thought, Mood Disorder, Substance Abuse, No: Anxiety, Homicidal Ideation Physical Exam Narrative GENERAL: Well-nourished, well-developed patient. SKIN: Warm and dry. HEAD: Normocephalic and atraumatic. EYES: No scleral icterus. No injection or drainage. ENT: No nasal drainage noted. Mucous membranes pink. Airway patent. NECK: Supple, trachea midline. Moves head freely without obvious discomfort. CARDIOVASCULAR: Regular rate and rhythm without murmurs, gallops, or rubs. RESPIRATORY: Breath sounds equal bilaterally. No accessory muscle use. GASTROINTESTINAL: Abdomen soft, non-tender, nondistended. EXTREMITIES: No cyanosis or edema. BACK: Nontender without obvious deformity. No CVA tenderness. NEURO: Patient is alert and oriented. no sensorimotor deficits. Nonfocal. Normal speech. PSYCH: No delusions. Positive auditory or visual hallucinations. Data Data Last Documented VS Vital Signs Date Time Temp Pulse Resp B/P (MAP) Pulse Ox O2 Delivery O2 Flow Rate FiO2 08/03/17 03:29 98.8 86 16 144/80 (101) 96 Room Air Orders Orders Complete Blood Count With Diff (08/03/17 03:45) Comprehensive Metabolic Panel (08/03/17 03:45) Psych Screen (08/03/17 03:45) [place] (Li) (08/03/17 03:45) Drug Screen, Random Urine (08/03/17 03:45) Alcohol (Ethanol) (08/03/17 03:45) Labs Laboratory Tests Test 08/03/17 03:50 White Blood Count 14.8 TH/MM3 Red Blood Count 4.84 MIL/MM3 Hemoglobin 15.5 GM/DL Hematocrit 43.6 % Mean Corpuscular Volume 90.0 FL Mean Corpuscular Hemoglobin 32.0 PG Mean Corpuscular Hemoglobin Concent 35.6 % Red Cell Distribution Width 13.1 % Platelet Count 247 TH/MM3 Mean Platelet Volume 8.3 FL Neutrophils (%) (Auto) 67.1 % Lymphocytes (%) (Auto) 24.2 % Monocytes (%) (Auto) 6.4 % Eosinophils (%) (Auto) 1.4 % Basophils (%) (Auto) 0.9 % Neutrophils # (Auto) 9.9 TH/MM3 Lymphocytes # (Auto) 3.6 TH/MM3 Monocytes # (Auto) 1.0 TH/MM3 Eosinophils # (Auto) 0.2 TH/MM3 Basophils # (Auto) 0.1 TH/MM3 CBC Comment DIFF FINAL Differential Comment Blood Urea Nitrogen 13 MG/DL Creatinine 0.94 MG/DL Random Glucose 111 MG/DL Total Protein 7.1 GM/DL Albumin 3.8 GM/DL Calcium Level 8.5 MG/DL Alkaline Phosphatase 96 U/L Aspartate Amino Transf (AST/SGOT) 25 U/L Alanine Aminotransferase (ALT/SGPT) 45 U/L Total Bilirubin 0.3 MG/DL Sodium Level 139 MEQ/L Potassium Level 3.7 MEQ/L Chloride Level 104 MEQ/L Carbon Dioxide Level 25.5 MEQ/L Anion Gap 10 MEQ/L Estimat Glomerular Filtration Rate 99 ML/MIN Urine Opiates Screen NEG Urine Barbiturates Screen NEG Urine Amphetamines Screen NEG Urine Benzodiazepines Screen NEG Urine Cocaine Screen POS Urine Cannabinoids Screen POS Ethyl Alcohol Level LESS THAN 3 MG/DL MDM Medical Decision Making Medical Screen Exam Complete: Yes Emergency Medical Condition: Yes Medical Record Reviewed: Yes Interpretation(s) Laboratory Tests Test 08/03/17 03:50 White Blood Count 14.8 TH/MM3 Red Blood Count 4.84 MIL/MM3 Hemoglobin 15.5 GM/DL Hematocrit 43.6 % Mean Corpuscular Volume 90.0 FL Mean Corpuscular Hemoglobin 32.0 PG Mean Corpuscular Hemoglobin Concent 35.6 % Red Cell Distribution Width 13.1 % Platelet Count 247 TH/MM3 Mean Platelet Volume 8.3 FL Neutrophils (%) (Auto) 67.1 % Lymphocytes (%) (Auto) 24.2 % Monocytes (%) (Auto) 6.4 % Eosinophils (%) (Auto) 1.4 % Basophils (%) (Auto) 0.9 % Neutrophils # (Auto) 9.9 TH/MM3 Lymphocytes # (Auto) 3.6 TH/MM3 Monocytes # (Auto) 1.0 TH/MM3 Eosinophils # (Auto) 0.2 TH/MM3 Basophils # (Auto) 0.1 TH/MM3 CBC Comment DIFF FINAL Differential Comment Blood Urea Nitrogen 13 MG/DL Creatinine 0.94 MG/DL Random Glucose 111 MG/DL Total Protein 7.1 GM/DL Albumin 3.8 GM/DL Calcium Level 8.5 MG/DL Alkaline Phosphatase 96 U/L Aspartate Amino Transf (AST/SGOT) 25 U/L Alanine Aminotransferase (ALT/SGPT) 45 U/L Total Bilirubin 0.3 MG/DL Sodium Level 139 MEQ/L Potassium Level 3.7 MEQ/L Chloride Level 104 MEQ/L Carbon Dioxide Level 25.5 MEQ/L Anion Gap 10 MEQ/L Estimat Glomerular Filtration Rate 99 ML/MIN Urine Opiates Screen NEG Urine Barbiturates Screen NEG Urine Amphetamines Screen NEG Urine Benzodiazepines Screen NEG Urine Cocaine Screen POS Urine Cannabinoids Screen POS Ethyl Alcohol Level LESS THAN 3 MG/DL Differential Diagnosis MDM: High Differential diagnoses: Schizophrenia, schizoaffective disorder, bipolar, anxiety, depression, adjustment reaction, mood disorder NOS, ODD, depressive disorder NOS, dementia, dementia with agitation, psychosis NOS, substance induced mood disorder, intermittent explosive disorder, Asperger syndrome, infection,electrolyte abnormality, malingering. Narrative Course Mental health screening discussed with the patient. Psychiatric screen ordered. The patient's been medically cleared. This is schizophrenia, substance abuse Diagnosis Primary Impression: Schizophrenia Qualified Codes: F20.9 - Schizophrenia, unspecified Additional Impression: Polysubstance dependence Dmitry Shearer Aug 03, 2017 03:54
[2017-08-03 04:12] LABS: AUTOMATED NEUTROPHIL # 9.9 TH/MM3 (1.8-7.7); BASOPHIL # 0.1 TH/MM3 (0-0.2); BASOPHIL % 0.9 % (0.0-2.0); EOSINOPHIL # 0.2 TH/MM3 (0-0.4); EOSINOPHIL % 1.4 % (0.0-4.0); HEMATOCRIT 43.6 % (39.0-51.0); HEMO FLAGS DIFF FINAL; LYMPH % 24.2 % (9.0-44.0); LYMPHOCYTE # 3.6 TH/MM3 (1.0-4.8); MEAN CORPUSCULAR HGB CONC 35.6 % (32.0-36.0); MONO % 6.4 % (0.0-8.0); NEUT % 67.1 % (16.0-70.0); PLATELET COUNT 247 TH/MM3 (150-450); RED BLOOD COUNT 4.84 MIL/MM3 (4.50-5.90); RED CELL DISTRIBUTION WIDTH 13.1 % (11.6-17.2); WHITE BLOOD COUNT 14.8 TH/MM3 (4.0-11.0)
[2017-08-03 04:29] LABS: ALKALINE PHOSPHATASE 96 U/L (45-117); TOTAL BILIRUBIN ADULT 0.3 MG/DL (0.2-1.0)
[2017-08-03 04:37] LABS: ANION GAP 10 MEQ/L (5-15); BICARBONATE 25.5 MEQ/L (21.0-32.0); CHLORIDE 104 MEQ/L (98-107); POTASSIUM 3.7 MEQ/L (3.5-5.1); SODIUM (NA) 139 MEQ/L (136-145)
[2017-08-03 04:38] LABS: BLOOD UREA NITROGEN 13 MG/DL (7-18); GLOMERULAR FILTRATION RATE 99 ML/MIN (>89)
[2017-08-03 04:39] LABS: ALCOHOL LESS THAN 3 MG/DL (0-5)
[2017-08-03 04:40] LABS: ALT (GPT) 45 U/L (12-78); AST (GOT) 25 U/L (15-37)
[2017-08-03 07:16] VITALS: BP 120/64; PULSE 80; RESP 18; O2SAT 98
[2017-08-03 16:20] VITALS: BP 137/60; PULSE 66; RESP 13; TEMP 96.4; O2SAT 97
[2017-08-03 18:17] VITALS: BP 133/66; PULSE 80; RESP 12; O2SAT 97
[2017-08-03 22:00] VITALS: BP 121/69; PULSE 73; RESP 16; O2SAT 97
[2017-08-04 02:09] VITALS: BP 134/72; PULSE 65; RESP 18; O2SAT 97
[2017-08-04] MEDS ORDERED: ACETAMINOPHEN 325 MG TAB PO ONE (03:45)
[2017-08-04 06:00] VITALS: BP 133/67; PULSE 59; RESP 18; O2SAT 97
[2017-08-04] MEDS ORDERED: MAGNESIUM HYDROXIDE SUSP 30 ML CUP PO PRN (10:30)
[2017-08-04] MEDS ORDERED: ALUMINUM/MAGNESIUM/SIMETH 30 ML CUP PO PRN (10:30)
[2017-08-04] MEDS ORDERED: LORazepam 2 MG/ML VIAL IM PRN (10:30)
[2017-08-04] MEDS ORDERED: ACETAMINOPHEN 325 MG TAB PO PRN (10:30)
--- NOTE | 2017-08-04 10:43 | HHI.HP ---
Provisional Diagnosis Admission Date Aug 04, 2017 at 10:21 [place] I. Schizophrenia, chronic paranoid type Certification of Person's Competence To Provide Express and Informed Consent I have personally examined Srinivasan Johnson , a person being served at [facility] on, Aug 04, 2017 10:34. Express and informed consent means consent voluntarily given in writing, by a competent person, after sufficient explanation and disclosure of the subject matter involved to enable the person to make a knowing and willful decision without any element of force, fraud, deceit, duress, or other form of constraint or coercion. This person is 18 years of age or older, is not now known to be incompetent to consent to treatment with a guardian advocate, and does not have a health care surrogate or proxy currently making medical treatment decisions. I have found this person to be one of the following: [x] Competent to provide express and informed consent, as defined above, for voluntary admission to this facility and is competent to provide express and informed consent for treatment. He/she has the consistent capacity to make well reasoned, willful, and knowing decisions concerning his or her medical or mental health treatment. The person fully and consistently understands the purpose of the admission for examination/placement and is fully capable of personally exercising all rights assured [place] Incompetent to provide express and informed consent to voluntary admission, and this is incompetent to provide express and informed consent to treatment. The person must be transferred to involuntary status and a petition for a guardian advocate filed with the Circuit Court. [] Refusing to provide express and informed consent to voluntary admission but is competent to provide express and informed consent for treatment. The person must be discharged or transferred to involuntary status. Form shall be completed within 24 hours of a person's arrival at the receiving facility and filed in the clinical record of each person: 1. Admitted on a voluntary basis 2. Permitted to provide express and informed consent to his/her own treatment 3. Allowed to transfer from involuntary to voluntary status 4. Prior to permitting a person to consent to his or her own treatment after having been previously found incompetent to consent to treatment. History of Present Illness Capacity: Has Capacity HPI 22-year-old male presents voluntarily for worsening symptoms of schizophrenia. Patient is well known to this physician from previous treatment at [facility]. He is currently reporting that he hears voices telling him to do things, including to harm himself and harm other people. The voices tell him what to eat as well. He is asking for medication adjustment to help him feel better and is increasingly anxious with suicidal thoughts and a plan to kill himself that he will not describe. He admits to previous suicide attempts as well and has also admitted to using crack cocaine, although he may be unreliable in this regard. The patient has also reported that his parents tell him he is useless and no good, but this physician knows his parents and it is unlikely they would behave like this. In addition to auditory hallucinations, the patient is seeing shadows and feeling people are talking about him. He acknowledges that he is paranoid. He states he is unable to relax and he is requesting medicine for his anxiety. He also reports he is unable to get out of bed in the morning. He sees "flashing lights" and describes physical symptoms of nausea, vomiting and diarrhea. Review of Systems ROS Limitations: Clinical Condition Psychiatric: COMPLAINS OF: Anxiety Except as stated in HPI: all other systems reviewed are Neg Past Psych History Psychological trauma history No history of psychological trauma. This physician began treating Srinivasan for schizophrenia at the age of 16. Violence risk - others (6 mos) Moderate to high. Violence risk - self (6 mos) High Substance Abuse History Drugs/Alcohol past 12 months Admits to smoking marijuana and being arrested for it. Past Family Social History Coded Allergies: amoxicillin (Verified Allergy, Severe, DIARRHEA, 08/03/17) clavulanic acid (Verified Allergy, Severe, DIARRHEA, 08/03/17) haloperidol (Verified Allergy, Unknown, 08/03/17) Active Scripts Escitalopram (Lexapro) 20 Mg Tab, 20 MG PO DAILY for health, #30 TAB 0 Refills Prov:Cristofer Rao MD 04/11/17 [place] Carbonate ([place] Carbonate) 300 Mg Tab, 300 MG PO Q12HR for Mental Health for 15 Days, TAB 1 Refill Prov:Jae Tucker MD 12/07/16 Reported Medications Aripiprazole Maintena Dual Chamber Inj (Abilify Maintena Dual Chamber Inj) 400 Mg Inj, 400 MG IM every 2 months, #1 SYRINGE 0 Refills 08/03/17 Discontinued Reported Medications Omeprazole Magnesium (Prilosec) 10 Mg Pow 12/03/16 Escitalopram (Lexapro) 10 Mg Tab, 15 MG PO DAILY, #30 TAB 0 Refills 12/03/16 Discontinued Scripts Gabapentin (Neurontin) 300 Mg Cap, 300 MG PO TID for Mental Health for 15 Days, CAP 1 Refill Prov:Jae Tucker MD 12/07/16 [place] Carbonate ([place] Carbonate) 300 Mg Tab, 300 MG PO DIRECTED for health, #90 TAB 0 Refills 1 in a.m, 2 at bedtime Prov:Cristofer Rao MD 04/11/17 Gabapentin (Neurontin) 300 Mg Cap, 300 MG PO TID for health, #90 CAP 0 Refills Prov:Cristofer Rao MD 04/11/17 Aripiprazole (Abilify) 20 Mg Tab, 20 MG PO DAILY for health, #30 TAB 0 Refills Prov:Cristofer Rao MD 04/11/17 Current Medications Medications (Trade) Dose Ordered Sig/[place] Route Start Time Stop Time Status Last Admin (Ativan) 1 mg Q6H PRN PO 08/04/17 10:30 UNV (Ativan Inj) 1 mg Q6H PRN IM 08/04/17 10:30 UNV (Tylenol) 650 mg Q4H PRN PO 08/04/17 10:30 UNV (Milk Of Magnesia Liq) 30 ml DAILY PRN PO 08/04/17 10:30 UNV (Mag-Al Plus Susp Liq) 30 ml Q6H PRN PO 08/04/17 10:30 UNV (Desyrel) 50 mg HS PRN PO 08/04/17 10:30 UNV (Lexapro) 20 mg DAILY PO 08/04/17 10:30 UNV (Lithotabs) 300 mg Q12HR PO 08/04/17 21:00 UNV (Ativan) 1 mg Q8HR PO 08/04/17 14:00 UNV Family Psych History Positive for schizophrenia Social History Reportedly lives with his parents. They are known to this physician and are generally supportive of the patient. He is unemployed. He likely uses marijuana to self medicate. Patient's Strengths (min. 2) Resilient and has access to healthcare. Physical Exam GENERAL: SKIN: Warm and dry. HEAD: Normocephalic. EYES: No scleral icterus. No injection or drainage. NECK: Supple, trachea midline. No JVD or lymphadenopathy. CARDIOVASCULAR: Regular rate and rhythm without murmurs, gallops, or rubs. RESPIRATORY: Breath sounds equal bilaterally. No accessory muscle use. GASTROINTESTINAL: Abdomen soft, non-tender, nondistended. MUSCULOSKELETAL: No cyanosis, or edema. BACK: Nontender without obvious deformity. No CVA tenderness. Vital Signs Vital Signs Date Time Temp Pulse Resp B/P (MAP) Pulse Ox O2 Delivery O2 Flow Rate FiO2 08/04/17 06:00 59 18 133/67 (89) 97 Room Air 08/03/17 16:20 96.4 Mental Status Examination Appearance: Appropriate Consciousness: Alert Orientation: x4 Motor Activity: Normal gait Speech: Hesitant, Slow Language: Adequate Fund of Knowledge: Adequate Attention and Concentration: Adequate Memory: Unremarkable Mood: Sad, Anxious Affect: Sad Thought Process & Associations: Intact Thought Content: Hallucinations, Delusional Hallucination Type: Auditory, Visual Delusion Type: Paranoid Suicidal Ideation: Yes Suicidal Plan: Yes Suicidal Intention: Yes Homicidal Ideation: No Homicidal Plan: No Homicidal Intention: No Insight: Adequate Judgment: Adequate Assessment & Plan Problem List: (1) Paranoid type schizophrenia, chronic state with acute exacerbation ICD Codes: F20.0 - Paranoid schizophrenia Status: Acute Assessment & Plan Estimated LOS: Man Wilder MD Aug 04, 2017 10:43
[2017-08-04] MEDS: ESCITALOPRAM OXALATE 20 MG TAB PO SCH (12:09)
[2017-08-04] MEDS: LORazepam 1 MG TAB PO SCH ×2 (12:10→19:59)
[2017-08-04 13:00] VITALS: BP 136/81; PULSE 76; RESP 19; TEMP 98.1; O2SAT 97
[2017-08-04] MEDS ORDERED: LORazepam 0.5 MG TAB PO SCH (14:00)
[2017-08-04 18:26] VITALS: BP 108/71; PULSE 80; RESP 18; TEMP 98.3; O2SAT 98
[2017-08-04] MEDS: NICOTINE 21 MG/24 HR PATCH T-DERMAL SCH (18:45)
[2017-08-04] MEDS: ARIPiprazole 15 MG TAB PO SCH (20:35)
[2017-08-04] MEDS: LITHIUM CARBONATE 300 MG TAB PO SCH (20:36)
[2017-08-04] MEDS: REMOVE OLD NICODERM (NICOTINE) PATCH T-DERMAL SCH (20:50)
[2017-08-05] MEDS: traZODone HCL 50 MG TAB PO PRN ×2 (00:32→21:03)
[2017-08-05] MEDS: LORazepam 1 MG TAB PO PRN ×2 (00:33→09:34)
[2017-08-05] MEDS: LORazepam 1 MG TAB PO SCH ×3 (05:29→21:39)
[2017-08-05 06:10] VITALS: BP 144/90; PULSE 68; RESP 17; TEMP 97.7; O2SAT 99
[2017-08-05 07:43] LABS: AUTOMATED NEUTROPHIL # 7.9 TH/MM3 (1.8-7.7); BASOPHIL # 0.1 TH/MM3 (0-0.2); BASOPHIL % 0.5 % (0.0-2.0); EOSINOPHIL # 0.2 TH/MM3 (0-0.4); EOSINOPHIL % 1.2 % (0.0-4.0); HEMATOCRIT 48.5 % (39.0-51.0); HEMO FLAGS DIFF FINAL; LYMPH % 30.1 % (9.0-44.0); LYMPHOCYTE # 3.8 TH/MM3 (1.0-4.8); MEAN CELL VOLUME 89.6 FL (80.0-100.0); MEAN CORPUSCULAR HEMOGLOBIN 30.6 PG (27.0-34.0); MEAN CORPUSCULAR HGB CONC 34.1 % (32.0-36.0); NEUT % 62.2 % (16.0-70.0); PLATELET COUNT 237 TH/MM3 (150-450); RED BLOOD COUNT 5.42 MIL/MM3 (4.50-5.90); RED CELL DISTRIBUTION WIDTH 13.1 % (11.6-17.2); WHITE BLOOD COUNT 12.7 TH/MM3 (4.0-11.0)
[2017-08-05 08:52] LABS: ALKALINE PHOSPHATASE 94 U/L (45-117); ALT (GPT) 36 U/L (12-78); ANION GAP 10 MEQ/L (5-15); AST (GOT) 16 U/L (15-37); BICARBONATE 25.3 MEQ/L (21.0-32.0); BLOOD UREA NITROGEN 12 MG/DL (7-18); CHLORIDE 103 MEQ/L (98-107); GLOMERULAR FILTRATION RATE 94 ML/MIN (>89); HDL CHOLESTEROL 27.6 MG/DL (40.0-60.0); LDL CHOLESTEROL 91 MG/DL (0-99); POTASSIUM 3.8 MEQ/L (3.5-5.1); SODIUM (NA) 138 MEQ/L (136-145); TOTAL BILIRUBIN ADULT 0.6 MG/DL (0.2-1.0)
[2017-08-05] MEDS: ESCITALOPRAM OXALATE 20 MG TAB PO SCH (09:34)
[2017-08-05] MEDS: LITHIUM CARBONATE 300 MG TAB PO SCH ×2 (09:34→21:03)
[2017-08-05] MEDS: NICOTINE 21 MG/24 HR PATCH T-DERMAL SCH (09:34)
[2017-08-05 13:22] LABS: HEMOGLOBIN A1a 1.1 %; HEMOGLOBIN A1b 0.9 %; HEMOGLOBIN Ao 86.5 %; HEMOGLOBIN F 1.1 %; HEMOGLOBIN LA1C 1.7 %; HEMOGLOBIN P3 3.2 %
--- NOTE | 2017-08-05 14:31 | EKG ---
Date Performed: 08/05/2017 Time Performed: 13:28:34 PTAGE: 22 years EKG: Sinus rhythm NORMAL ECG No significant change from prior electrocardiogram. PREVIOUS TRACING : 07/04/2015 05.13 DOCTOR: Pedrito Cool Interpretating Date/Time 08/05/2017 14:29:46
--- NOTE | 2017-08-05 14:53 | HHI.PYPN ---
Subjective Remarks Patient was seen and case discussed with nursing. Patient is pleasant and cooperative with exam. Insight is good. He says the medications are starting to take effect and the voices though still there are no longer telling him to hurt himself or others. They are commenting on his life. Patient is hypoverbal , psychomotor retardation, with a flat affect. Tolerating his medications well and behaving well on the unit. Visiting with his mother Mental Status Examination Appearance: Appropriate Consciousness: Alert Orientation: x4 Motor Activity: Normal gait Speech: Hesitant, Slow Language: Adequate Fund of Knowledge: Adequate Attention and Concentration: Adequate Memory: Unremarkable Mood: Anxious Affect: Flat Thought Process & Associations: Intact Thought Content: Hallucinations, Delusional Hallucination Type: Auditory, Visual Delusion Type: Paranoid Suicidal Ideation: No (denies) Suicidal Plan: No Suicidal Intention: No Homicidal Ideation: No Homicidal Plan: No Homicidal Intention: No Insight: Adequate Judgment: Adequate Results Labs Test 08/05/17 07:13 White Blood Count 12.7 TH/MM3 Red Blood Count 5.42 MIL/MM3 Hemoglobin 16.6 GM/DL Hematocrit 48.5 % Mean Corpuscular Volume 89.6 FL Mean Corpuscular Hemoglobin 30.6 PG Mean Corpuscular Hemoglobin Concent 34.1 % Red Cell Distribution Width 13.1 % Platelet Count 237 TH/MM3 Mean Platelet Volume 7.9 FL Neutrophils (%) (Auto) 62.2 % Lymphocytes (%) (Auto) 30.1 % Monocytes (%) (Auto) 6.0 % Eosinophils (%) (Auto) 1.2 % Basophils (%) (Auto) 0.5 % Neutrophils # (Auto) 7.9 TH/MM3 Lymphocytes # (Auto) 3.8 TH/MM3 Monocytes # (Auto) 0.8 TH/MM3 Eosinophils # (Auto) 0.2 TH/MM3 Basophils # (Auto) 0.1 TH/MM3 CBC Comment DIFF FINAL Differential Comment Blood Urea Nitrogen 12 MG/DL Creatinine 0.99 MG/DL Random Glucose 83 MG/DL Total Protein 7.4 GM/DL Albumin 3.9 GM/DL Calcium Level 9.5 MG/DL Alkaline Phosphatase 94 U/L Aspartate Amino Transf (AST/SGOT) 16 U/L Alanine Aminotransferase (ALT/SGPT) 36 U/L Total Bilirubin 0.6 MG/DL Sodium Level 138 MEQ/L Potassium Level 3.8 MEQ/L Chloride Level 103 MEQ/L Carbon Dioxide Level 25.3 MEQ/L Anion Gap 10 MEQ/L Estimat Glomerular Filtration Rate 94 ML/MIN Hemoglobin A1c 5.0 % Triglycerides Level 256 MG/DL Cholesterol Level 170 MG/DL LDL Cholesterol 91 MG/DL HDL Cholesterol 27.6 MG/DL Cholesterol/HDL Ratio 6.15 RATIO Vitamin B12 Level 277 PG/ML 25-Hydroxy Vitamin D Total 24.6 ng/ML Thyroid Stimulating Hormone 3rd Gen 1.670 uIU/ML Vitals/IOs Vital Signs Date Time Temp Pulse Resp B/P (MAP) Pulse Ox O2 Delivery O2 Flow Rate FiO2 08/05/17 06:10 97.7 68 17 144/90 (108) 99 08/04/17 06:00 Room Air Assessment & Plan Problem List: (1) Paranoid type schizophrenia, chronic state with acute exacerbation ICD Codes: F20.0 - Paranoid schizophrenia Status: Acute Assessment & Plan Continue current treatment plan Justification for Cont. Inpt. Patient would decompensate in a less restrictive setting Zohaib Lackey DO Aug 05, 2017 14:53
[2017-08-05 18:00] VITALS: BP 151/93; PULSE 94; RESP 17; TEMP 97.7
[2017-08-05] MEDS: REMOVE OLD NICODERM (NICOTINE) PATCH T-DERMAL SCH (21:00)
[2017-08-05] MEDS: ARIPiprazole 15 MG TAB PO SCH (21:03)
[2017-08-06 05:38] VITALS: BP 120/68; PULSE 80; RESP 18; TEMP 98.1; O2SAT 98
[2017-08-06] MEDS: LORazepam 1 MG TAB PO SCH (06:01)
[2017-08-06] MEDS: LITHIUM CARBONATE 300 MG TAB PO SCH ×2 (08:39→20:12)
[2017-08-06] MEDS: ESCITALOPRAM OXALATE 20 MG TAB PO SCH (08:41)
[2017-08-06] MEDS: NICOTINE 21 MG/24 HR PATCH T-DERMAL SCH ×2 (08:42→16:00)
[2017-08-06] MEDS: REMOVE OLD NICODERM (NICOTINE) PATCH T-DERMAL SCH (08:42)
[2017-08-06] MEDS: LORazepam 1 MG TAB PO PRN ×2 (09:21→20:07)
[2017-08-06] MEDS ORDERED: traZODone HCL 50 MG TAB PO PRN (12:15)
--- NOTE | 2017-08-06 12:18 | HHI.PYPN ---
Subjective Remarks Patient was seen and case discussed with nursing. Patient remains tired and lethargic with a blunted affect. He could be over medicated with Ativan. He says his auditory visual hallucinations have completely resolved today. Claims he is not sleeping well per nursing he is sleeping well. Mental Status Examination Appearance: Appropriate Consciousness: Alert Orientation: x4 Motor Activity: Normal gait Speech: Hesitant, Slow Language: Adequate Fund of Knowledge: Adequate Attention and Concentration: Adequate Memory: Unremarkable Mood: Anxious Affect: Flat Thought Process & Associations: Intact Thought Content: Hallucinations (denies today), Delusional (could be responding ) Hallucination Type: None Delusion Type: Paranoid Suicidal Ideation: No (denies) Suicidal Plan: No Suicidal Intention: No Homicidal Ideation: No Homicidal Plan: No Homicidal Intention: No Insight: Adequate Judgment: Adequate Results Vitals/IOs Vital Signs Date Time Temp Pulse Resp B/P (MAP) Pulse Ox O2 Delivery O2 Flow Rate FiO2 08/06/17 05:38 98.1 80 18 120/68 (85) 98 08/04/17 06:00 Room Air Assessment & Plan Problem List: (1) Paranoid type schizophrenia, chronic state with acute exacerbation ICD Codes: F20.0 - Paranoid schizophrenia Status: Acute Assessment & Plan [facility] level tomorrow, lower Ativan to 0.5 mg, increase trazodone to 100 daily at bedtime Justification for Cont. Inpt. Pt would decompensate in a less restrictive setting. Zohaib Lackey DO Aug 06, 2017 12:18
[2017-08-06] MEDS: LORazepam 0.5 MG TAB PO SCH ×2 (14:00→22:00)
[2017-08-06 16:50] VITALS: BP 139/89; PULSE 88; RESP 18; TEMP 98; O2SAT 96
[2017-08-06] MEDS: ARIPiprazole 15 MG TAB PO SCH (20:13)
[2017-08-07] MEDS: LORazepam 0.5 MG TAB PO SCH ×4 (00:42→20:30)
[2017-08-07] MEDS: LORazepam 1 MG TAB PO PRN ×2 (02:02→11:18)
[2017-08-07 05:29] VITALS: BP 112/66; PULSE 68; RESP 18; TEMP 98; O2SAT 97
[2017-08-07] MEDS: LITHIUM CARBONATE 300 MG TAB PO SCH ×4 (08:16→20:36)
[2017-08-07] MEDS: ESCITALOPRAM OXALATE 20 MG TAB PO SCH (08:16)
[2017-08-07] MEDS: NICOTINE 21 MG/24 HR PATCH T-DERMAL SCH (08:17)
[2017-08-07] MEDS: hydrOXYzine HCL 25 MG TAB PO PRN (16:50)
--- NOTE | 2017-08-07 17:04 | HHI.PYPN ---
Subjective Remarks Patient seen for follow-up, chart review. Patient is a 22-year-old man, domicile appearance, with past psychiatric history of schizophrenia, THC/ crack cocaine use disorder, previous psychiatric admissions who was admitted to the inpatient psychiatry unit for command auditory hallucinations to hurt self and others, in the context of recent crack cocaine use. Patient today was seen walking on the unit was, cooperative interview today. Patient states that he's been having auditory hallucinations to hang himself and harm others, feels that it has lessened since his admission but still present. Patient reports difficulty with sleep, reports his mood today as being "good" denies any SI, HI but continues report voices not letting him use the bathroom although denies any difficulty with urination or bowel movement. Patient stated he continues to have auditory hallucinations during interview there were noncommand and also visual hallucinations of "thoughts of blue and white". Chief Complaint: command auditory hallucinations to hurt self and others Review of Systems Except as stated in HPI: all other systems reviewed are Neg Mental Status Examination Appearance: Appropriate Consciousness: Alert Orientation: x4 Motor Activity: Normal gait Speech: Hesitant, Slow Language: Adequate Fund of Knowledge: Adequate Attention and Concentration: Adequate Memory: Unremarkable Mood: Good Affect: Flat Thought Process & Associations: Intact, Linear Thought Content: Hallucinations, Delusional Hallucination Type: Auditory Delusion Type: Paranoid Suicidal Ideation: No (denies) Suicidal Plan: No Suicidal Intention: No Homicidal Ideation: No Homicidal Plan: No Homicidal Intention: No Insight: Fair Judgment: Adequate Results Labs Labs reviewed. Test 08/07/17 09:26 Wink Level 0.4 MEQ/L Vitals/IOs Vital Signs Date Time Temp Pulse Resp B/P (MAP) Pulse Ox O2 Delivery O2 Flow Rate FiO2 08/07/17 05:29 98.0 68 18 112/66 (81) 97 08/04/17 06:00 Room Air Assessment & Plan Problem List: (1) Paranoid type schizophrenia, chronic state with acute exacerbation ICD Codes: F20.0 - Paranoid schizophrenia Status: Acute Assessment & Plan Patient continues to endorse perceptual disturbances, auditory hallucination command type, and reporting anxiety. Patient lithium level was subtherapeutic. We'll increase lithium to 300 mg 3 times a day, increase Abilify to 20 mg by mouth daily, we'll add hydroxyzine 25 mg by mouth every 6 hours when necessary for moderate to severe anxiety. We'll discontinue lorazepam 1 mg for anxiety due to patient's history of substance use. Discharge planning in progress Justification for Cont. Inpt. At risk for further decompensation if at lower level of care. Discharge Planning Patient to return to parent's home once psychiatrically stable Albin Lee MD Aug 07, 2017 17:04
[2017-08-07 17:34] VITALS: BP 134/75; PULSE 90; RESP 18; TEMP 97.9; O2SAT 95
[2017-08-07] MEDS: REMOVE OLD NICODERM (NICOTINE) PATCH T-DERMAL SCH (21:00)
[2017-08-07] MEDS: traZODone HCL 50 MG TAB PO PRN (21:06)
[2017-08-08] MEDS: LORazepam 0.5 MG TAB PO SCH ×3 (05:37→21:58)
[2017-08-08] MEDS: hydrOXYzine HCL 25 MG TAB PO PRN ×3 (05:37→20:29)
[2017-08-08 05:58] VITALS: BP 139/81; PULSE 71; RESP 17; TEMP 97.6; O2SAT 97
[2017-08-08] MEDS: ESCITALOPRAM OXALATE 20 MG TAB PO SCH (08:29)
[2017-08-08] MEDS: LITHIUM CARBONATE 300 MG TAB PO SCH ×3 (08:29→20:29)
[2017-08-08] MEDS: NICOTINE 21 MG/24 HR PATCH T-DERMAL SCH (08:30)
--- NOTE | 2017-08-08 15:44 | HHI.PYPN ---
Subjective Remarks Patient seen for follow-up, chart review. Patient found lying in hospital bed, cooperative. Patient states that the medications are working well, denies any auditory or visual hallucinations at this time patient states that he was visited by his parents feel that he is doing much better. Patient states having slept better last evening denies any adverse drug reactions to current treatment. Patient states that he wants to have rehabilitation program upon discharge he states that he does not mind going back to [facility] was only concerned that he was not able to get his medications as there. Chief Complaint: command auditory hallucinations to hurt self and others Review of Systems Except as stated in HPI: all other systems reviewed are Neg Mental Status Examination Appearance: Appropriate Consciousness: Alert Orientation: x4 Motor Activity: Normal gait Speech: Slow Language: Adequate Fund of Knowledge: Adequate Attention and Concentration: Adequate Memory: Unremarkable Mood: Good Affect: Flat Thought Process & Associations: Intact, Linear Thought Content: Hallucinations, Delusional Hallucination Type: Auditory (denies today) Delusion Type: Paranoid (less today) Suicidal Ideation: No (denies) Suicidal Plan: No Suicidal Intention: No Homicidal Ideation: No Homicidal Plan: No Homicidal Intention: No Insight: Fair Judgment: Adequate Results Vitals/IOs Vital Signs Date Time Temp Pulse Resp B/P (MAP) Pulse Ox O2 Delivery O2 Flow Rate FiO2 08/08/17 05:58 97.6 71 17 139/81 (100) 97 Assessment & Plan Problem List: (1) Paranoid type schizophrenia, chronic state with acute exacerbation ICD Codes: F20.0 - Paranoid schizophrenia Status: Acute Assessment & Plan Patient at this time appears to be improving or clearing from recent substance use. Patient with decrease perceptual disturbances and improve mood. We'll continue current treatment for now. Patient agreed to go into rehabilitation program. Patient likely for discharge tomorrow patient continues to improve. Discharge planning in progress Justification for Cont. Inpt. At risk for further decompensation if at lower level of care Discharge Planning Patient to return back to parents home and participate in routine outpatient rehabilitation program along with continued outpatient mental health services. Albin Lee MD Aug 08, 2017 15:44
[2017-08-08 18:14] VITALS: BP 107/56; PULSE 72; RESP 17; TEMP 98; O2SAT 97
[2017-08-08] MEDS: traZODone HCL 50 MG TAB PO PRN (20:29)
[2017-08-08] MEDS: REMOVE OLD NICODERM (NICOTINE) PATCH T-DERMAL SCH (20:50)
[2017-08-09] MEDS: LORazepam 0.5 MG TAB PO SCH ×2 (05:47→13:40)
[2017-08-09 06:14] VITALS: BP 83/65; PULSE 78; RESP 18; TEMP 97.8; O2SAT 96
[2017-08-09] MEDS: LITHIUM CARBONATE 300 MG TAB PO SCH (08:01)
[2017-08-09] MEDS: NICOTINE 21 MG/24 HR PATCH T-DERMAL SCH (08:02)
[2017-08-09] MEDS: ESCITALOPRAM OXALATE 20 MG TAB PO SCH (08:02)
[2017-08-09] MEDS: hydrOXYzine HCL 25 MG TAB PO PRN (09:36)
[2017-08-09] MEDS ORDERED: LITH300T3 PO ×2 (12:13)
[2017-08-09] MEDS ORDERED: TRAZ50TA12 PO (12:13)
[2017-08-09] MEDS ORDERED: ESCI20TA PO (12:13)
[2017-08-09] MEDS ORDERED: ARIP1TAB7 PO (12:13)
--- NOTE | 2017-08-09 16:34 | HHI.DS ---
Psychiatry Discharge Summary Inpatient Psychiatric care?: Yes Advance Directive: No Reason Not Provided: Due to Patient Condition Mental Health AdvanceDirective: No Health Care Proxy: No Admission Admission Date Aug 04, 2017 at 10:21 Admission Diagnosis: (1) Paranoid type schizophrenia, chronic state with acute exacerbation ICD Code: F20.0 - Paranoid schizophrenia Brief History 22-year-old male presents voluntarily for worsening symptoms of schizophrenia. Patient is well known to this physician from previous treatment at [facility]. He is currently reporting that he hears voices telling him to do things, including to harm himself and harm other people. The voices tell him what to eat as well. He is asking for medication adjustment to help him feel better and is increasingly anxious with suicidal thoughts and a plan to kill himself that he will not describe. He admits to previous suicide attempts as well and has also admitted to using crack cocaine, although he may be unreliable in this regard. The patient has also reported that his parents tell him he is useless and no good, but this physician knows his parents and it is unlikely they would behave like this. In addition to auditory hallucinations, the patient is seeing shadows and feeling people are talking about him. He acknowledges that he is paranoid. He states he is unable to relax and he is requesting medicine for his anxiety. He also reports he is unable to get out of bed in the morning. He sees "flashing lights" and describes physical symptoms of nausea, vomiting and diarrhea. Tobacco Use In Past 30 Days: No Tobacco Past 30 Days Alcohol Use: Never Hospital Course Patient is a 22-year-old man, domicile appearance, with past psychiatric history of schizophrenia, THC/crack cocaine use disorder, previous psychiatric admissions who was admitted to the inpatient psychiatry unit for command auditory hallucinations to hurt self and others, in the context of recent crack cocaine use. Patient was admitted to the inpatient psychiatry unit where he was started on lithium 300mg PO TID, aripiprazole 20mg PO daily, which he tolerated well. Patient continued to have improvement of mood, denied any recurrence of suicidal ideation and cessation of perceptual disturbances. Upon discharge patient stated feeling good motivated to continue onto rehabilitation program for substance use which he will continue outpatient follow-up at [facility] along with engaging in the rehabilitation program. He agrees to continue treatment and attend outpatient follow up appointments for continuity of care. Patient denies SI, HI, AVH or delusions. Supportive psychotherapy provided. Patient advised to return to ED or call 911 in case of emergency. Patient agrees with plan. Results Blood Pressure 83 / 65 Vital Signs Date Time Temp Pulse Resp B/P (MAP) Pulse Ox O2 Delivery O2 Flow Rate FiO2 08/09/17 06:14 97.8 78 18 83/65 (71) 96 Laboratory Tests Test 08/07/17 09:26 [place] Level 0.4 MEQ/L (0.5-1.5) Laboratory Results Test 08/05/17 07:13 08/07/17 09:26 Cholesterol Level 170 MG/DL (120-200) HDL Cholesterol 27.6 MG/DL (40.0-60.0) Hemoglobin A1c 5.0 % (4.3-6.0) LDL Cholesterol 91 MG/DL (0-99) Triglycerides Level 256 MG/DL (42-150) Wellman Level 0.4 MEQ/L (0.5-1.5) Summary of Procedures none Pending results at discharge: No Medications # of Antipsychotic meds at D/C: 1 Approp Antipsych med options 1 - Minimum of three failed multiple trials of monotherapy. 2 - Documented plan to taper to monotherapy due to previous use of multiple meds OR cross-taper in progress at D/C. 3 - Documentation of augmentation of Clozapine. 4 - Justification other than those listed in allowable values 1-3, document here : Discharge Discharge Date: Aug 09, 2017 Discharge Diagnosis: (1) Paranoid type schizophrenia, chronic state with acute exacerbation ICD Code: F20.0 - Paranoid schizophrenia Status: Acute Pt Condition on Discharge: Stable Discharge Disposition: Discharge Home Discharge Instructions Diet Instructions: Heart Healthy Diet Activities you can perform: Regular-No Restrictions Scheduled Appointment: [facility] Appointment Date: Aug 10, 2017 Appointment Time: 730 Discharge Time > 30 minutes Mental Status Examination Appearance: Appropriate Consciousness: Alert Orientation: x4 Motor Activity: Normal gait Speech: Slow Language: Adequate Fund of Knowledge: Adequate Attention and Concentration: Adequate Memory: Unremarkable Mood: Good Affect: Other (restricted) Thought Process & Associations: Intact, Goal directed, Linear Thought Content: Appropriate Hallucination Type: None Delusion Type: None Suicidal Ideation: No Suicidal Plan: No Suicidal Intention: No Homicidal Ideation: No Homicidal Plan: No Homicidal Intention: No Insight: Fair Judgment: Adequate Discharge/Advance Care Plan Health Problems: (1) Paranoid type schizophrenia, chronic state with acute exacerbation Goals to promote your health * To prevent worsening of your condition and complications * To maintain your health at the optimal level Directions to meet your goals Take your medications as prescribed Follow your dietary instruction Follow activity as directed Keep your appointments as scheduled Take your immunizations and boosters as scheduled If your symptoms worsen call your PCP, if no PCP go to Urgent Care Center or Emergency Room For 15/05 questions related to your inpatient stay or results of tests pending at discharge, please contact Dr. Albin Lee at Smoking is Dangerous to Your Health. Avoid second hand smoking Albin Lee MD Aug 09, 2017 16:34
== END 2017-08-09 14:57 | disposition home or self-care (01) | DRG 885 ==
LOC: NEPD 03:28 → NEDA 08-04 10:21 → H270 08-04 11:59 → H260 08-05 10:35
PROVIDERS: ADMIT Student in an Organized Health Care Education/Training Program; ATTEND Student in an Organized Health Care Education/Training Program
DX: F20.0 Paranoid schizophrenia (principal); R45.851 Suicidal ideations; I10 Essential (primary) hypertension; Z91.5 Personal history of self-harm; F12.90 Cannabis use, unspecified, uncomplicated; Z81.8 Family history of other mental and behavioral disorders; F14.90 Cocaine use, unspecified, uncomplicated; F90.9 Attention-deficit hyperactivity disorder, unspecified type; J45.909 Unspecified asthma, uncomplicated; F32.9 Major depressive disorder, single episode, unspecified; Z72.0 Tobacco use
CPT/HCPCS: 80053; 80061; 80178; 80307; 82306; 82607; 83036; 84443; 85025; 93005

== ENCOUNTER 2017-11-02 18:18 | Emergency (ER) | payer MEDICAID, OTHER ==
[~2017-11-02] VITALS: Ht 182.9 cm; Wt 118.0 kg
[~2017-11-02 18:18] MED LIST changes: +ABIL20TA5 PO; +ARIP10IN IM; -ARIP1TAB7 PO; +ESCI20TA PO; -LEXA10TA PO; -NEUR300C PO; -PRIL10PO; +TRAZ50TA12 PO
[2017-11-02 18:25] VITALS: BP 145/82; PULSE 96; RESP 18; TEMP 98.8; O2SAT 97
[2017-11-02 19:23] LABS: AUTOMATED NEUTROPHIL # 7.9 TH/MM3 (1.8-7.7); BASOPHIL # 0.1 TH/MM3 (0-0.2); BASOPHIL % 1.1 % (0.0-2.0); EOSINOPHIL # 0.2 TH/MM3 (0-0.4); EOSINOPHIL % 1.5 % (0.0-4.0); HEMATOCRIT 44.9 % (39.0-51.0); HEMOGLOBIN 15.9 GM/DL (13.0-17.0); LYMPH % 23.8 % (9.0-44.0); LYMPHOCYTE # 2.9 TH/MM3 (1.0-4.8); MEAN CELL VOLUME 88.2 FL (80.0-100.0); MEAN CORPUSCULAR HEMOGLOBIN 31.4 PG (27.0-34.0); MEAN CORPUSCULAR HGB CONC 35.6 % (32.0-36.0); MEAN PLATELET VOLUME 7.8 FL (7.0-11.0); MONO % 8.5 % (0.0-8.0); NEUT % 65.1 % (16.0-70.0); PLATELET COUNT 265 TH/MM3 (150-450); RED BLOOD COUNT 5.09 MIL/MM3 (4.50-5.90); RED CELL DISTRIBUTION WIDTH 13.2 % (11.6-17.2); WHITE BLOOD COUNT 12.1 TH/MM3 (4.0-11.0)
[2017-11-02 19:34] LABS: AST (GOT) 30 U/L (15-37); BLOOD UREA NITROGEN 8 MG/DL (7-18); CALCIUM 8.8 MG/DL (8.5-10.1); CHLORIDE 105 MEQ/L (98-107); GLOMERULAR FILTRATION RATE 83 ML/MIN (>89); GLUCOSE,RANDOM 92 MG/DL (74-106); SODIUM (NA) 138 MEQ/L (136-145)
[2017-11-02 19:38] LABS: ALKALINE PHOSPHATASE 101 U/L (45-117); ALT (GPT) 48 U/L (12-78); TOTAL BILIRUBIN ADULT 0.5 MG/DL (0.2-1.0); TOTAL PROTEIN 7.6 GM/DL (6.4-8.2)
--- NOTE | 2017-11-02 20:36 | PD ---
Physical Exam Date Seen by Provider: Nov 02, 2017 Time Seen by Provider: 20:36 Narrative 22 year old male presents to the emergency department voluntarily for psychiatric evaluation. Patient was brought in by the police under a voluntary status. Patient states that he feels angry and feels like he might hurt himself or somebody else. Symptoms have been ongoing for a week. Patient reports history of paranoid schizophrenia. He takes his medications as prescribed. Moderate severity. Data Data Last Documented VS Vital Signs Date Time Temp Pulse Resp B/P (MAP) Pulse Ox O2 Delivery O2 Flow Rate FiO2 11/02/17 18:25 98.8 96 18 145/82 (103) 97 Room Air Orders Orders Complete Blood Count With Diff (11/02/17 18:37) Comprehensive Metabolic Panel (11/02/17 18:37) Psych Screen (11/02/17 18:37) Drug Screen, Random Urine (11/02/17 18:37) Alcohol (Ethanol) (11/02/17 18:37) Labs Laboratory Tests Test 11/02/17 18:54 11/02/17 18:59 White Blood Count 12.1 TH/MM3 Red Blood Count 5.09 MIL/MM3 Hemoglobin 15.9 GM/DL Hematocrit 44.9 % Mean Corpuscular Volume 88.2 FL Mean Corpuscular Hemoglobin 31.4 PG Mean Corpuscular Hemoglobin Concent 35.6 % Red Cell Distribution Width 13.2 % Platelet Count 265 TH/MM3 Mean Platelet Volume 7.8 FL Neutrophils (%) (Auto) 65.1 % Lymphocytes (%) (Auto) 23.8 % Monocytes (%) (Auto) 8.5 % Eosinophils (%) (Auto) 1.5 % Basophils (%) (Auto) 1.1 % Neutrophils # (Auto) 7.9 TH/MM3 Lymphocytes # (Auto) 2.9 TH/MM3 Monocytes # (Auto) 1.0 TH/MM3 Eosinophils # (Auto) 0.2 TH/MM3 Basophils # (Auto) 0.1 TH/MM3 CBC Comment DIFF FINAL Differential Comment Blood Urea Nitrogen 8 MG/DL Creatinine 1.10 MG/DL Random Glucose 92 MG/DL Total Protein 7.6 GM/DL Albumin 4.0 GM/DL Calcium Level 8.8 MG/DL Alkaline Phosphatase 101 U/L Aspartate Amino Transf (AST/SGOT) 30 U/L Alanine Aminotransferase (ALT/SGPT) 48 U/L Total Bilirubin 0.5 MG/DL Sodium Level 138 MEQ/L Potassium Level 3.9 MEQ/L Chloride Level 105 MEQ/L Carbon Dioxide Level 25.0 MEQ/L Anion Gap 8 MEQ/L Estimat Glomerular Filtration Rate 83 ML/MIN Ethyl Alcohol Level LESS THAN 3 MG/DL Urine Opiates Screen NEG Urine Barbiturates Screen NEG Urine Amphetamines Screen NEG Urine Benzodiazepines Screen NEG Urine Cocaine Screen NEG Urine Cannabinoids Screen POS MDM Medical Record Reviewed: Yes Supervised Visit with HERMAN: No Narrative Course 22 year old male presents to the emergency department by police voluntarily for psychiatric evaluation. Patient was initially seen in triage. He left against medical advice before he could be placed in a medical bed. Diagnosis Primary Impression: Left against medical advice Additional Impression: Schizophrenia Qualified Codes: F20.9 - Schizophrenia, unspecified Disposition: 07 AGAINST MEDICAL ADVICE Shayy Weaver Nov 02, 2017 20:36
== END 2017-11-02 20:30 | disposition left against medical advice (07) ==
LOC: NEDAMB 18:18
DX: Z04.6 Encounter for general psychiatric examination, requested by authority (principal); F20.0 Paranoid schizophrenia
CPT/HCPCS: 80053; 80307; 85025; 99283

== ENCOUNTER 2018-02-01 16:15 | Inpatient (IN) | payer OTHER ==
[~2018-02-01] VITALS: Ht 182.9 cm; Wt 137.1 kg
[2018-02-01 16:52] VITALS: BP 133/85; PULSE 103; RESP 18; TEMP 96.8; O2SAT 98
--- NOTE | 2018-02-01 17:04 | PD ---
HPI Chief Complaint: Psychiatric Symptoms Time Seen by Provider: 16:56 Travel History International Travel<30 days: No Contact w/Intl Traveler<30days: No Traveled to known affect area: No History of Present Illness HPI 22-year-old male with PMH of schizophrenia, substance abuse, hiatal hernia presents to the ED under Keen act for psychiatric evaluation. Patient states that he has been hearing voices for approximately 3 weeks. He states that the voices tell him to harm himself. He denies any suicidal gesture. He states that he has been angry lately. He endorses compliance with daily psychiatric medications. He complains of chronic right upper quadrant abdominal pain with associated intermittent nausea which he attributes to his hiatal hernia. He endorses compliance with omeprazole. He states that he had an EGD within the last year. No other somatic complaints. Endorses drinking alcohol, smoking cocaine and smoking marijuana. Endorses drinking one half beer today. PFSH Past Medical History ADD: Yes ADHD: Yes Asthma: Yes Anxiety: Yes Depression: Yes Diabetes: No (see EMR ) Diminished Hearing: No Gastrointestinal Disorders: Yes ("CONSTIPATION" "WHEN I GET NERVOUS") Genitourinary: Yes Hypertension: Yes Neurologic: Yes (Hx. of T.B.I.) Respiratory: Yes Immunizations Current: Yes Migraines: Yes Schizophrenia: Yes Ulcer: Yes (PAST HX.) Past Surgical History Genitourinary Surgery: Yes Social History Alcohol Use: Yes (RARE) Tobacco Use: Yes (1 PPD ) Allergies-Medications (Allergen,Severity, Reaction): Coded Allergies: amoxicillin (Verified Allergy, Severe, DIARRHEA, 02/01/18) clavulanic acid (Verified Allergy, Severe, DIARRHEA, 02/01/18) haloperidol (Verified Allergy, Unknown, 02/01/18) Reported Meds & Prescriptions Reported Meds & Active Scripts Active [place] Carbonate 300 Mg Tab 300 Mg PO Q12HR 15 Days Reported Abilify (Aripiprazole) 30 Mg Tab 30 Mg PO DAILY Trazodone (Trazodone HCl) 100 Mg Tablet 100 Mg PO HS Escitalopram (Escitalopram Oxalate) 10 Mg Tab 10 Mg PO DAILY Review of Systems Except as stated in HPI: all other systems reviewed are Neg Physical Exam Narrative GENERAL: Well-nourished, well-developed patient. PSYCH: Cooperative, does not appear to be responding to internal stimuli. SKIN: Focused skin assessment warm/dry. HEAD: Normocephalic. EYES: No scleral icterus. No injection or drainage. NECK: Supple, trachea midline. No JVD or lymphadenopathy. CARDIOVASCULAR: Regular rate and rhythm without murmurs, gallops, or rubs. RESPIRATORY: Breath sounds clear and equal bilaterally. No accessory muscle use. GASTROINTESTINAL: Abdomen soft, non-tender, nondistended. Active bowel sounds. MUSCULOSKELETAL: No cyanosis, or edema. Walks with normal gait. BACK: Nontender without obvious deformity. No CVA tenderness. Data Data Last Documented VS Vital Signs Date Time Temp Pulse Resp B/P (MAP) Pulse Ox O2 Delivery O2 Flow Rate FiO2 02/01/18 18:33 88 18 126/63 (84) 97 Room Air 02/01/18 16:52 96.8 Orders Orders Complete Blood Count With Diff (02/01/18 16:56) Comprehensive Metabolic Panel (02/01/18 16:56) Thyroid Stimulating Hormone (02/01/18 16:56) Psych Screen (02/01/18 16:56) Drug Screen, Random Urine (02/01/18 16:56) Alcohol (Ethanol) (02/01/18 16:56) Labs Laboratory Tests Test 02/01/18 17:30 White Blood Count 9.7 TH/MM3 Red Blood Count 5.02 MIL/MM3 Hemoglobin 15.6 GM/DL Hematocrit 44.8 % Mean Corpuscular Volume 89.2 FL Mean Corpuscular Hemoglobin 31.0 PG Mean Corpuscular Hemoglobin Concent 34.8 % Red Cell Distribution Width 13.1 % Platelet Count 220 TH/MM3 Mean Platelet Volume 7.9 FL Neutrophils (%) (Auto) 66.9 % Lymphocytes (%) (Auto) 24.7 % Monocytes (%) (Auto) 6.7 % Eosinophils (%) (Auto) 1.1 % Basophils (%) (Auto) 0.6 % Neutrophils # (Auto) 6.5 TH/MM3 Lymphocytes # (Auto) 2.4 TH/MM3 Monocytes # (Auto) 0.6 TH/MM3 Eosinophils # (Auto) 0.1 TH/MM3 Basophils # (Auto) 0.1 TH/MM3 CBC Comment DIFF FINAL Differential Comment Blood Urea Nitrogen 8 MG/DL Creatinine 1.06 MG/DL Random Glucose 80 MG/DL Total Protein 7.6 GM/DL Albumin 4.0 GM/DL Calcium Level 9.1 MG/DL Alkaline Phosphatase 94 U/L Aspartate Amino Transf (AST/SGOT) 34 U/L Alanine Aminotransferase (ALT/SGPT) 47 U/L Total Bilirubin 0.4 MG/DL Sodium Level 141 MEQ/L Potassium Level 4.1 MEQ/L Chloride Level 107 MEQ/L Carbon Dioxide Level 26.2 MEQ/L Anion Gap 8 MEQ/L Estimat Glomerular Filtration Rate 87 ML/MIN Thyroid Stimulating Hormone 3rd Gen 0.957 uIU/ML Urine Opiates Screen NEG Urine Barbiturates Screen NEG Urine Amphetamines Screen NEG Urine Benzodiazepines Screen NEG Urine Cocaine Screen POS Urine Cannabinoids Screen POS Ethyl Alcohol Level LESS THAN 3 MG/DL MDM Medical Decision Making Medical Screen Exam Complete: Yes Emergency Medical Condition: Yes Differential Diagnosis Adjustment disorder versus anxiety versus bipolar versus depression versus dementia versus electrolyte disorder versus malingering versus mood disorder versus ODD versus psychosis versus PTSD versus schizophrenia versus schizoaffective disorder versus substance-induced mood disorder versus other Narrative Course 22-year-old male with PMH of schizophrenia, substance abuse, hiatal hernia presents to the ED under Keen act for psychiatric evaluation. Patient states that he has been hearing voices for approximately 3 weeks. He states that the voices tell him to harm himself. He denies any suicidal gesture. He states that he has been angry lately. He endorses compliance with daily psychiatric medications. Endorses drinking alcohol, smoking cocaine and smoking marijuana. Endorses drinking one half beer today. Vitals reviewed. Patient is tachycardic in triage, this resolves in the exam room. On exam the patient is calm and cooperative. Chest CTAB. Abdomen soft and nontender. Basic lab work reveals no concerning abnormalities. Tox screen positive for cannabinoids and cocaine. The patient is medically cleared for psychiatric evaluation. Linda Woodruff Feb 01, 2018 17:04
[2018-02-01 18:11] LABS: AUTOMATED NEUTROPHIL # 6.5 TH/MM3 (1.8-7.7); BASOPHIL # 0.1 TH/MM3 (0-0.2); BASOPHIL % 0.6 % (0.0-2.0); EOSINOPHIL # 0.1 TH/MM3 (0-0.4); EOSINOPHIL % 1.1 % (0.0-4.0); HEMATOCRIT 44.8 % (39.0-51.0); HEMOGLOBIN 15.6 GM/DL (13.0-17.0); LYMPH % 24.7 % (9.0-44.0); LYMPHOCYTE # 2.4 TH/MM3 (1.0-4.8); MEAN CELL VOLUME 89.2 FL (80.0-100.0); MEAN CORPUSCULAR HGB CONC 34.8 % (32.0-36.0); MEAN PLATELET VOLUME 7.9 FL (7.0-11.0); MONO % 6.7 % (0.0-8.0); MONOCYTE # 0.6 TH/MM3 (0-0.9); NEUT % 66.9 % (16.0-70.0); PLATELET COUNT 220 TH/MM3 (150-450); RED BLOOD COUNT 5.02 MIL/MM3 (4.50-5.90); RED CELL DISTRIBUTION WIDTH 13.1 % (11.6-17.2); WHITE BLOOD COUNT 9.7 TH/MM3 (4.0-11.0)
[2018-02-01] MEDS ORDERED: TRAZ100T10 PO (18:19)
[2018-02-01] MEDS ORDERED: ABIL30TA5 PO (18:19)
[2018-02-01] MEDS ORDERED: ESCI10TA PO (18:19)
[2018-02-01 18:22] LABS: BICARBONATE 26.2 MEQ/L (21.0-32.0); BLOOD UREA NITROGEN 8 MG/DL (7-18); CALCIUM 9.1 MG/DL (8.5-10.1); CHLORIDE 107 MEQ/L (98-107); GLUCOSE,RANDOM 80 MG/DL (74-106); SODIUM (NA) 141 MEQ/L (136-145)
[2018-02-01 18:33] VITALS: BP 126/63; PULSE 88; RESP 18; O2SAT 97
[2018-02-01 18:34] LABS: ALKALINE PHOSPHATASE 94 U/L (45-117); ALT (GPT) 47 U/L (12-78); AST (GOT) 34 U/L (15-37); CREATININE 1.06 MG/DL (0.60-1.30); GLOMERULAR FILTRATION RATE 87 ML/MIN (>89); TOTAL BILIRUBIN ADULT 0.4 MG/DL (0.2-1.0); TOTAL PROTEIN 7.6 GM/DL (6.4-8.2)
[2018-02-01 22:35] VITALS: BP 140/63; PULSE 85; RESP 18; TEMP 98.5; O2SAT 96
[2018-02-02 05:08] VITALS: BP 123/53; PULSE 60; RESP 18; TEMP 97.9; O2SAT 98
[2018-02-02 10:53] VITALS: BP 124/68; PULSE 80; RESP 20
--- NOTE | 2018-02-02 13:41 | PD ---
History of Present Illness Chief Complaint: Psychiatric Symptoms Time Seen by Provider: 13:30 Travel History International Travel<30 Days: No Contact w/Intl Traveler<30days: No Known affected area: No Legal Status Legal Status: Keen Act Keen Act Signed By: Ida Mccord History of Present Illness: History of Present Illness HPI 22-year-old single, male with PMH of schizophrenia, substance abuse, who presents to the ED under Keen act initiated by law enforcement for psychiatric evaluation. The Keen act alleges that the patient has been noncompliant with prescribed psychiatric medication and has demonstrated increase in angry and violent behavior at home allegedly destroying things around the home. His mother reports that she is afraid of his potential to harm himself or as well as others at this time. In addition the patient has been intermittently using both cocaine and marijuana. He also reports intermittent use of heroin. The patient is reporting at this time increase in command auditory hallucinations that "tell me to kill myself". He reports that he has been hearing the voices for approximately 3 weeks but that they have become more prominent in the last couple of days. He admits to last taking his psychiatric medication 4 days ago. Electronic medical record is reviewed. The patient has had 11 past hospitalizations to [facility] psychiatry Department. His first contact was at age 16 when he began treatment with Dr. Man Staley. His last hospitalization was in July 2017 and this was also in context of medication nonadherence and use of substances. Current toxicology is positive for cocaine and cannabinoids. No lithium level has been drawn in the ED. Since patient arrived on the unit he has been somewhat isolative and withdrawn. He has not been agitated or aggressive. Patient is seen. He is awake, alert, dressed in hospital [facility] with disheveled appearance. His affect is blunted. Maintains little eye contact. His speech is very low tone. Patient reports continued auditory hallucination command type that tell him to harm himself. He also admits to impaired sleep, low energy level, anhedonia, variable level of energy. Mood is described as depressed. He does not verbalize suicidal ideation. Does not verbalize suicidal ideation at this time. PFSH Past Medical History ADD: Yes ADHD: Yes Asthma: Yes Anxiety: Yes Depression: Yes Diabetes: No (see EMR ) Diminished Hearing: No Gastrointestinal Disorders: Yes ("CONSTIPATION" "WHEN I GET NERVOUS") Genitourinary: Yes Hypertension: Yes Neurologic: Yes (Hx. of T.B.I.) Respiratory: Yes Immunizations Current: Yes Migraines: Yes Schizophrenia: Yes Ulcer: Yes (PAST HX.) Past Surgical History Genitourinary Surgery: Yes Psychiatric History Psychiatric History Hx Psychiatric Treatment: SCHIZOPHRENIA,. Multiple psychiatric hospitalizations since age 16. Sees Torey at [facility]. History of Inpatient Treatment: Yes Guns or firearms in home: No Social History Single, never , lives with his parents. Completed seventh grade. Is on disability. Hx Alcohol Use: Yes (RARE) Hx Tobacco Use: Yes (1 PPD ) Hx Substance Use: Yes ("CRACK AND HERION") Substance Use Type: Crack, Heroin Other Substances Used: DID YESTERDAY Hx of Substance Use Treatment: No Family Psychiatric History Negative Allergies-Medications (Allergen,Severity, Reaction): Coded Allergies: amoxicillin (Verified Allergy, Severe, DIARRHEA, 02/01/18) clavulanic acid (Verified Allergy, Severe, DIARRHEA, 02/01/18) haloperidol (Verified Allergy, Unknown, 02/01/18) Reported Meds & Prescriptions Reported Meds & Active Scripts Active [place] Carbonate 300 Mg Tab 300 Mg PO Q12HR 15 Days Reported Abilify (Aripiprazole) 30 Mg Tab 30 Mg PO DAILY Trazodone (Trazodone HCl) 100 Mg Tablet 100 Mg PO HS Escitalopram (Escitalopram Oxalate) 10 Mg Tab 10 Mg PO DAILY Review of Systems Psychiatric: COMPLAINS OF: Mood changes, Hallucinations Except as stated in HPI: all other systems reviewed are Neg Mental Status Examination Appearance: Disheveled Consciousness: Alert Orientation: x4 Motor Activity: Normal gait Speech: Hesitant, Slow Language: Adequate Fund of Knowledge: Adequate Attention and Concentration: Inadequate Memory: Unremarkable Mood: Sad Affect: Blunt Thought Process & Associations: Intact Thought Content: Hallucinations Hallucination Type: Auditory Delusion Type: None (Command type to hurt himself) Suicidal Ideation: No Suicidal Plan: No Suicidal Intention: No Homicidal Ideation: No Homicidal Plan: No Homicidal Intention: No Insight: Poor Judgment: Impulsive MDM Medical Decision Making Medical Record Reviewed: Yes Assessment/Plan 22-year-old single, male with PMH of schizophrenia, substance abuse, who presents to the ED under Keen act initiated by law enforcement for psychiatric evaluation. The Keen act alleges that the patient has been noncompliant with prescribed psychiatric medication and has demonstrated increase in angry and violent behavior at home allegedly destroying things around the home. His mother reports that she is afraid of his potential to harm himself or as well as others at this time. In addition the patient has been intermittently using both cocaine and marijuana. He also reports intermittent use of heroin. The patient is reporting at this time increase in command auditory hallucinations that "tell me to kill myself". He reports that he has been hearing the voices for approximately 3 weeks but that they have become more prominent in the last couple of days. He admits to last taking his psychiatric medication 4 days ago. We have been unable to contact his mother for collateral information at this time. The case will be discussed with Dr. Xavier, psychiatrist [facility]ice for possible admission. Orders Orders Complete Blood Count With Diff (02/01/18 16:56) Comprehensive Metabolic Panel (02/01/18 16:56) Thyroid Stimulating Hormone (02/01/18 16:56) Psych Screen (02/01/18 16:56) Drug Screen, Random Urine (02/01/18 16:56) Alcohol (Ethanol) (02/01/18 16:56) Diet Regular Basic (02/02/18 Breakfast) Diet Regular Basic (02/02/18 Lunch) Results Vital Signs Date Time Temp Pulse Resp B/P (MAP) Pulse Ox O2 Delivery O2 Flow Rate FiO2 02/02/18 10:53 80 20 124/68 (86) 02/02/18 05:08 97.9 60 18 123/53 (76) 98 Room Air 02/01/18 22:35 98.5 85 18 140/63 (88) 96 Room Air 02/01/18 18:33 88 18 126/63 (84) 97 Room Air 02/01/18 16:52 96.8 103 18 133/85 (101) 98 Laboratory Tests Test 02/01/18 17:30 White Blood Count 9.7 Red Blood Count 5.02 Hemoglobin 15.6 Hematocrit 44.8 Mean Corpuscular Volume 89.2 Mean Corpuscular Hemoglobin 31.0 Mean Corpuscular Hemoglobin Concent 34.8 Red Cell Distribution Width 13.1 Platelet Count 220 Mean Platelet Volume 7.9 Neutrophils (%) (Auto) 66.9 Lymphocytes (%) (Auto) 24.7 Monocytes (%) (Auto) 6.7 Eosinophils (%) (Auto) 1.1 Basophils (%) (Auto) 0.6 Neutrophils # (Auto) 6.5 Lymphocytes # (Auto) 2.4 Monocytes # (Auto) 0.6 Eosinophils # (Auto) 0.1 Basophils # (Auto) 0.1 CBC Comment DIFF FINAL Differential Comment Blood Urea Nitrogen 8 Creatinine 1.06 Random Glucose 80 Total Protein 7.6 Albumin 4.0 Calcium Level 9.1 Alkaline Phosphatase 94 Aspartate Amino Transf (AST/SGOT) 34 Alanine Aminotransferase (ALT/SGPT) 47 Total Bilirubin 0.4 Sodium Level 141 Potassium Level 4.1 Chloride Level 107 Carbon Dioxide Level 26.2 Anion Gap 8 Estimat Glomerular Filtration Rate 87 Thyroid Stimulating Hormone 3rd Gen 0.957 Urine Opiates Screen NEG Urine Barbiturates Screen NEG Urine Amphetamines Screen NEG Urine Benzodiazepines Screen NEG Urine Cocaine Screen POS Urine Cannabinoids Screen POS Ethyl Alcohol Level LESS THAN 3 Diagnosis Primary Impression: Schizophrenia Additional Impressions: Cannabis abuse Cocaine abuse Admitting Information Admitting Physician Requests: Admit Problem Qualifiers Primary Impression: Schizophrenia Qualified Codes: F20.9 - Schizophrenia, unspecified Nakia Wills [facility] Feb 02, 2018 13:41
[2018-02-02 14:15] VITALS: BP 129/62; PULSE 64; RESP 20
--- NOTE | 2018-02-02 14:28 | HHI.HP ---
Provisional Diagnosis Admission Date Polk I. Schizoaffective disorder, bipolar type, cocaine, alcohol and cannabis use disorder Polk II. Deferred Polk III. Obesity Certification of Person's Competence To Provide Express and Informed Consent I have personally examined Srinivasan Johnson , a person being served at [facility] on, Feb 02, 2018 14:22. Express and informed consent means consent voluntarily given in writing, by a competent person, after sufficient explanation and disclosure of the subject matter involved to enable the person to make a knowing and willful decision without any element of force, fraud, deceit, duress, or other form of constraint or coercion. This person is 18 years of age or older, is not now known to be incompetent to consent to treatment with a guardian advocate, and does not have a health care surrogate or proxy currently making medical treatment decisions. I have found this person to be one of the following: [] Competent to provide express and informed consent, as defined above, for voluntary admission to this facility and is competent to provide express and informed consent for treatment. He/she has the consistent capacity to make well reasoned, willful, and knowing decisions concerning his or her medical or mental health treatment. The person fully and consistently understands the purpose of the admission for examination/placement and is fully capable of personally exercising all rights assured [place] Incompetent to provide express and informed consent to voluntary admission, and this is incompetent to provide express and informed consent to treatment. The person must be transferred to involuntary status and a petition for a guardian advocate filed with the Circuit Court. [x] Refusing to provide express and informed consent to voluntary admission but is competent to provide express and informed consent for treatment. The person must be discharged or transferred to involuntary status. Form shall be completed within 24 hours of a person's arrival at the receiving facility and filed in the clinical record of each person: 1. Admitted on a voluntary basis 2. Permitted to provide express and informed consent to his/her own treatment 3. Allowed to transfer from involuntary to voluntary status 4. Prior to permitting a person to consent to his or her own treatment after having been previously found incompetent to consent to treatment. History of Present Illness Capacity: Has Capacity HPI The patient is 22-year-old man, single, domiciled in [place] with his father, supported by [employer], with past psychiatric history of schizophrenia, substance abuse, including cocaine, cannabis, heroine, alcohol, multiple psychiatric hospitalizations, last hospitalization was in 2016 under the care of Dr. Lee, the patient is on trazodone 100 mg, Abilify 30 mg, Lexapro 10 mg , prescribed by psychiatrist in [facility], no significant medical history, who presents to the ED under Keen act initiated by law enforcement for psychiatric evaluation. The Keen act alleges that the patient has been noncompliant with prescribed psychiatric medication and has demonstrated increase in angry and violent behavior at home allegedly destroying things around the home. His mother reports that she is afraid of his potential to harm himself or as well as others at this time. In addition the patient has been intermittently using both cocaine and marijuana. He also reports intermittent use of heroin. The patient is reporting at this time increase in command auditory hallucinations that "tell me to kill myself". He reports that he has been hearing the voices for approximately 3 weeks but that they have become more prominent in the last couple of days. He admits to last taking his psychiatric medication 4 days ago.Electronic medical record is reviewed. The patient has had 11 past hospitalizations to [facility] psychiatry Department. His first contact was at age 16 when he began treatment with Dr. Man Staley. His last hospitalization was in July 2017 and this was also in context of medication nonadherence and use of substances. Current toxicology is positive for cocaine and cannabinoids. No lithium level has been drawn in the ED. Since patient arrived on the unit he has been somewhat isolative and withdrawn. He has not been agitated or aggressive.The patient is seen for psychiatric evaluation in the ER, is calm, cooperative, he seems to be decade and distended. He is awake , alert, dressed in [facility] with disheveled appearance. His affect is blunted. Maintains little eye contact. His speech is very low tone. Patient reports continued auditory hallucination command type that tell him to harm himself. He also admits to impaired sleep, low energy level, anhedonia, variable level of energy. Mood is described as depressed. He does not verbalize suicidal ideation. Does not verbalize suicidal ideation at this time. Review of Systems Constitutional: DENIES: Diaphoretic episodes, Fatigue, Fever, Weight gain, Weight loss, Chills, Dizziness, Change in appetite, Night Sweats Endocrine: DENIES: Heat/cold intolerance, Polydipsia, Polyuria, Polyphagia Eyes: DENIES: Blurred vision, Diplopia, Eye inflammation, Eye pain, Vision loss , Photosensitivity, Double Vision Ears, nose, mouth, throat: DENIES: Tinnitus, Hearing loss, Vertigo, Nasal discharge, Oral lesions, Throat pain, Hoarseness, Ear Pain, Running Nose, Epistaxis, Sinus Pain, Toothache, Odynophagia Respiratory: DENIES: Apneas, Cough, Snoring, Wheezing, Hemoptysis, Sputum production, Shortness of breath Cardiovascular: DENIES: Chest pain, Palpitations, Syncope, Dyspnea on Exertion , PND, Lower Extremity Edema, Orthopnea, Claudication Gastrointestinal: DENIES: Abdominal pain, Black stools, Bloody stools, Constipation, Diarrhea, Nausea, Vomiting, Difficulty Swallowing, Anorexia Genitourinary: DENIES: Sexual dysfunction, Urinary frequency, Urinary incontinence, Urgency, Hematuria, Dysuria, Nocturia, Penile Discharge, Testicular Pain, Testicular Swelling Musculoskeletal: DENIES: Joint pain, Muscle aches, Stiffness, Joint Swelling, Back pain, Neck pain Integumentary: DENIES: Abnormal pigmentation, Nail changes, Pruritus, Rash Hematologic/lymphatic: DENIES: Bruising, Lymphadenopathy Immunologic/allergic: DENIES: Eczema, Urticaria Neurologic: DENIES: Abnormal gait, Headache, Localized weakness, Paresthesias, Seizures, Speech Problems, Tremor, Poor Balance Psychiatric: COMPLAINS OF: Hallucinations, Suicidal Ideation, DENIES: Anxiety, Confusion, Mood changes, Depression, Agitation, Homicidal Ideation, Delusions Past Psych History Violence risk - self (6 mos) Increased Substance Abuse History Drugs/Alcohol past 12 months Patient reports almost daily use of cocaine, heroin, cannabis and alcohol Past Family Social History Coded Allergies: amoxicillin (Verified Allergy, Severe, DIARRHEA, 02/01/18) clavulanic acid (Verified Allergy, Severe, DIARRHEA, 02/01/18) haloperidol (Verified Allergy, Unknown, 02/01/18) Active Scripts [place] Carbonate ([place] Carbonate) 300 Mg Tab, 300 MG PO Q12HR for Mental Health for 15 Days, TAB 1 Refill Prov:Jae Tucker MD 12/07/16 Reported Medications Aripiprazole (Abilify) 30 Mg Tab, 30 MG PO DAILY, #30 TAB 0 Refills 02/01/18 Trazodone (Trazodone) 100 Mg Tablet, 100 MG PO HS for Control Depression, #30 TAB 0 Refills 02/01/18 Escitalopram (Escitalopram) 10 Mg Tab, 10 MG PO DAILY, #30 TAB 0 Refills 02/01/18 Discontinued Reported Medications Aripiprazole Maintena Dual Chamber Inj (Abilify Maintena Dual Chamber Inj) 400 Mg Inj, 400 MG IM every 2 months, #1 SYRINGE 0 Refills 08/03/17 Discontinued Scripts [place] Carbonate ([place] Carbonate) 300 Mg Tab, 300 MG PO DAILY@1600 for health for 30 Days, #30 TAB Prov:Albin Lee MD 08/09/17 [place] Carbonate ([place] Carbonate) 300 Mg Tab, 300 MG PO BID for health for 30 Days, #60 TAB Prov:Albin Lee MD 08/09/17 Aripiprazole (Abilify) 20 Mg Tab, 20 MG PO HS for health for 30 Days, #30 TAB Prov:Albin Lee MD 08/09/17 Trazodone (Trazodone) 50 Mg Tab, 150 MG PO HS Y for INSOMNIA for 15 Days, #15 TAB Prov:Albin Lee MD 08/09/17 Escitalopram (Escitalopram) 20 Mg Tab, 20 MG PO DAILY for health for 30 Days, # 30 TAB Prov:Albin Lee MD 08/09/17 Escitalopram (Lexapro) 20 Mg Tab, 20 MG PO DAILY for health, #30 TAB 0 Refills Prov:Cristofer Rao MD 04/11/17 Current Medications Medications (Trade) Dose Ordered Sig/Cortney Route Start Time Stop Time Status Last Admin (Abilify) 30 mg DAILY PO 02/02/18 14:30 UNV (Lexapro) 10 mg DAILY PO 02/03/18 09:00 UNV Non-Formulary Medication 100 mg HS PO 02/02/18 21:00 UNV Family Psych History No family psychiatric history Social History Patient was born raised in [facility], he lives in [place] here with his father, unemployed, supported by [employer], his highest level of education is 7 grade Patient's Strengths (min. 2) Outpatient psychiatric care Physical Exam No tremors, no EPS, he seems to be psychomotor retarded Vital Signs Vital Signs Date Time Temp Pulse Resp B/P (MAP) Pulse Ox O2 Delivery O2 Flow Rate FiO2 02/02/18 10:53 80 20 124/68 (86) 02/02/18 05:08 97.9 98 Room Air Lab Results Test 02/01/18 17:30 White Blood Count 9.7 TH/MM3 Red Blood Count 5.02 MIL/MM3 Hemoglobin 15.6 GM/DL Hematocrit 44.8 % Mean Corpuscular Volume 89.2 FL Mean Corpuscular Hemoglobin 31.0 PG Mean Corpuscular Hemoglobin Concent 34.8 % Red Cell Distribution Width 13.1 % Platelet Count 220 TH/MM3 Mean Platelet Volume 7.9 FL Neutrophils (%) (Auto) 66.9 % Lymphocytes (%) (Auto) 24.7 % Monocytes (%) (Auto) 6.7 % Eosinophils (%) (Auto) 1.1 % Basophils (%) (Auto) 0.6 % Neutrophils # (Auto) 6.5 TH/MM3 Lymphocytes # (Auto) 2.4 TH/MM3 Monocytes # (Auto) 0.6 TH/MM3 Eosinophils # (Auto) 0.1 TH/MM3 Basophils # (Auto) 0.1 TH/MM3 CBC Comment DIFF FINAL Differential Comment Blood Urea Nitrogen 8 MG/DL Creatinine 1.06 MG/DL Random Glucose 80 MG/DL Total Protein 7.6 GM/DL Albumin 4.0 GM/DL Calcium Level 9.1 MG/DL Alkaline Phosphatase 94 U/L Aspartate Amino Transf (AST/SGOT) 34 U/L Alanine Aminotransferase (ALT/SGPT) 47 U/L Total Bilirubin 0.4 MG/DL Sodium Level 141 MEQ/L Potassium Level 4.1 MEQ/L Chloride Level 107 MEQ/L Carbon Dioxide Level 26.2 MEQ/L Anion Gap 8 MEQ/L Estimat Glomerular Filtration Rate 87 ML/MIN Thyroid Stimulating Hormone 3rd Gen 0.957 uIU/ML Urine Opiates Screen NEG Urine Barbiturates Screen NEG Urine Amphetamines Screen NEG Urine Benzodiazepines Screen NEG Urine Cocaine Screen POS Urine Cannabinoids Screen POS Ethyl Alcohol Level LESS THAN 3 MG/DL Mental Status Examination Appearance: Disheveled Consciousness: Alert Orientation: x4 Motor Activity: Normal gait Speech: Hesitant, Slow Language: Adequate Fund of Knowledge: Adequate Attention and Concentration: Inadequate Memory: Unremarkable Mood: Sad Affect: Blunt Thought Process & Associations: Intact Thought Content: Hallucinations Hallucination Type: Auditory Delusion Type: None (Command type to hurt himself) Suicidal Ideation: No Suicidal Plan: No Suicidal Intention: No Homicidal Ideation: No Homicidal Plan: No Homicidal Intention: No Insight: Poor Judgment: Impulsive Assessment & Plan Problem List: (1) Schizoaffective disorder ICD Codes: F25.9 - Schizoaffective disorder Status: Acute Assessment & Plan: Patient is acutely psychotic, he reports commanding type auditory hallucinations. He has also flat affect, thought blocking, speech delay. Patient was Keen acted due to acute psychosis and noncompliance of medications. At this moment the patient represents high his risk of danger to self and others due to the level of psychosis. Will restart his Abilify 10 mg, trazodone 100 mg, Lexapro 10. Patient will be transferred to 2700 unit. We will consult psychiatry for second opinion. Assessment & Plan Estimated LOS: Nikolay Luz MD Feb 02, 2018 14:28
[2018-02-02] MEDS ORDERED: LORazepam 2 MG/ML VIAL IM PRN ×2 (14:30)
[2018-02-02] MEDS ORDERED: ALUMINUM/MAGNESIUM/SIMETH 30 ML CUP PO PRN (14:30)
[2018-02-02] MEDS ORDERED: MAGNESIUM HYDROXIDE SUSP 30 ML CUP PO PRN (14:30)
[2018-02-02] MEDS ORDERED: LORazepam 1 MG TAB PO PRN (14:30)
[2018-02-02] MEDS ORDERED: ACETAMINOPHEN 325 MG TAB PO PRN (14:30)
[2018-02-02] MEDS ORDERED: LORazepam 0.5 MG TAB PO PRN (14:30)
[2018-02-02] MEDS: ARIPiprazole 30 MG TAB PO SCH (16:36)
[2018-02-02 17:00] VITALS: BP 120/81; PULSE 80; RESP 18; TEMP 97.1; O2SAT 100
[2018-02-02] MEDS: REMOVE OLD NICODERM (NICOTINE) PATCH T-DERMAL SCH (21:00)
[2018-02-02] MEDS: traZODone HCL 100 MG TAB PO SCH (21:26)
[2018-02-03 06:16] VITALS: BP 105/65; PULSE 73; RESP 16; TEMP 97.3; O2SAT 97
[2018-02-03 07:25] LABS: BICARBONATE 25.9 MEQ/L (21.0-32.0); BLOOD UREA NITROGEN 15 MG/DL (7-18); CALCIUM 9.3 MG/DL (8.5-10.1); CHLORIDE 107 MEQ/L (98-107); CREATININE 1.07 MG/DL (0.60-1.30); GLOMERULAR FILTRATION RATE 86 ML/MIN (>89); GLUCOSE,RANDOM 74 MG/DL (74-106); SODIUM (NA) 143 MEQ/L (136-145)
[2018-02-03 07:26] LABS: CHOLESTEROL 173 MG/DL (120-200); TRIGLYCERIDES 282 MG/DL (42-150)
[2018-02-03 07:27] LABS: CHOLESTEROL/ HDL RATIO 6.86 RATIO; HDL CHOLESTEROL 25.2 MG/DL (40.0-60.0); LDL CHOLESTEROL 91 MG/DL (0-99)
[2018-02-03] MEDS: ESCITALOPRAM OXALATE 10 MG TAB PO SCH (08:54)
[2018-02-03] MEDS: ARIPiprazole 30 MG TAB PO SCH (08:55)
[2018-02-03] MEDS: NICOTINE 21 MG/24 HR PATCH T-DERMAL SCH (08:57)
--- NOTE | 2018-02-03 14:39 | HHI.PYPN ---
Subjective Remarks This is a request for second opinion. Admission note was reviewed and I agree with the history. Patient was seen and case was discussed with nursing. Patient has poor insight into admission. He denies threatening his mother. He is complaining of auditory hallucinations telling him to hurt himself. He has fleeting suicidal ideation with no intent or plan. Per nursing he is manipulative and attention seeking. Mental Status Examination Appearance: Disheveled Consciousness: Alert Orientation: x4 Motor Activity: Normal gait Speech: Hesitant, Slow Language: Adequate Fund of Knowledge: Adequate Attention and Concentration: Inadequate Memory: Unremarkable Mood: Sad Affect: Blunt Thought Process & Associations: Intact Thought Content: Hallucinations Hallucination Type: Auditory (To kill himself) Delusion Type: None (Command type to hurt himself) Suicidal Ideation: Yes (Fleeting) Suicidal Plan: No Suicidal Intention: No Homicidal Ideation: No Homicidal Plan: No Homicidal Intention: No Insight: Poor Judgment: Impulsive Results Labs Test 02/03/18 05:58 Blood Urea Nitrogen 15 MG/DL Creatinine 1.07 MG/DL Random Glucose 74 MG/DL Calcium Level 9.3 MG/DL Sodium Level 143 MEQ/L Potassium Level 3.9 MEQ/L Chloride Level 107 MEQ/L Carbon Dioxide Level 25.9 MEQ/L Anion Gap 10 MEQ/L Estimat Glomerular Filtration Rate 86 ML/MIN Triglycerides Level 282 MG/DL Cholesterol Level 173 MG/DL LDL Cholesterol 91 MG/DL HDL Cholesterol 25.2 MG/DL Cholesterol/HDL Ratio 6.86 RATIO Vitals/IOs Vital Signs Date Time Temp Pulse Resp B/P (MAP) Pulse Ox O2 Delivery O2 Flow Rate FiO2 02/03/18 06:16 97.3 73 16 105/65 (78) 97 02/02/18 14:15 Room Air Assessment & Plan Problem List: (1) Schizoaffective disorder ICD Codes: F25.9 - Schizoaffective disorder Status: Acute Assessment & Plan I agree with the first opinion to continue petition. Criteria include acute psychosis Justification for Cont. Inpt. Patient would decompensate in a less restrictive setting Zohaib Lackey DO Feb 03, 2018 14:39
[2018-02-03 18:00] VITALS: BP 129/79; PULSE 76; RESP 16; TEMP 98; O2SAT 97
[2018-02-03] MEDS: REMOVE OLD NICODERM (NICOTINE) PATCH T-DERMAL SCH (20:14)
[2018-02-03] MEDS: traZODone HCL 100 MG TAB PO SCH (20:14)
[2018-02-04 05:58] VITALS: BP 115/55; PULSE 64; RESP 16; TEMP 98.4
[2018-02-04] MEDS: NICOTINE 21 MG/24 HR PATCH T-DERMAL SCH (09:00)
[2018-02-04] MEDS: ESCITALOPRAM OXALATE 10 MG TAB PO SCH (10:04)
[2018-02-04] MEDS: ARIPiprazole 30 MG TAB PO SCH (10:04)
[2018-02-04 11:52] LABS: HEMOGLOBIN A1C 4.9 % (4.3-6.0)
--- NOTE | 2018-02-04 13:40 | HHI.PYPN ---
Subjective Remarks Pt is sleeping throughout the day. Also says he slept well at night. He has been behaving well on the unit and apologized for his irritable behavior yesterday to the nurses. Says he had a good conversation with his mother and is looking forward to seeing her today Mental Status Examination Appearance: Disheveled Consciousness: Alert Orientation: x4 Motor Activity: Normal gait Speech: Hesitant, Slow Language: Adequate Fund of Knowledge: Adequate Attention and Concentration: Inadequate Memory: Unremarkable Mood: Sad Affect: Blunt Thought Process & Associations: Intact Thought Content: Hallucinations Hallucination Type: Auditory (To kill himself) Delusion Type: None (Command type to hurt himself) Suicidal Ideation: Yes (Fleeting) Suicidal Plan: No Suicidal Intention: No Homicidal Ideation: No Homicidal Plan: No Homicidal Intention: No Insight: Poor Judgment: Impulsive Results Vitals/IOs Vital Signs Date Time Temp Pulse Resp B/P (MAP) Pulse Ox O2 Delivery O2 Flow Rate FiO2 02/04/18 05:58 98.4 64 16 115/55 (75) 02/03/18 18:00 97 02/02/18 14:15 Room Air Assessment & Plan Problem List: (1) Schizoaffective disorder ICD Codes: F25.9 - Schizoaffective disorder Status: Acute Assessment & Plan Continue current treatment plan Justification for Cont. Inpt. Patient would decompensate in a less restrictive setting Zohaib Lackey DO Feb 04, 2018 13:40
[2018-02-04 15:37] VITALS: BP 122/81; PULSE 81; RESP 18; TEMP 98.6; O2SAT 100
[2018-02-04] MEDS: REMOVE OLD NICODERM (NICOTINE) PATCH T-DERMAL SCH (20:08)
[2018-02-04] MEDS: traZODone HCL 100 MG TAB PO SCH (20:08)
[2018-02-05 06:06] VITALS: BP 116/56; PULSE 56; RESP 18; TEMP 98.2; O2SAT 99
[2018-02-05] MEDS: ARIPiprazole 30 MG TAB PO SCH (08:38)
[2018-02-05] MEDS: ESCITALOPRAM OXALATE 10 MG TAB PO SCH (08:38)
[2018-02-05] MEDS: NICOTINE 21 MG/24 HR PATCH T-DERMAL SCH (08:38)
[2018-02-05] MEDS ORDERED: PILL SPLITTER OTHER PRN (12:15)
[2018-02-05 16:42] VITALS: BP 120/63; PULSE 58; RESP 18; TEMP 98.6; O2SAT 96
--- NOTE | 2018-02-05 18:36 | HHI.PYPN ---
Subjective Remarks Patient seen for follow, chart reviewed. Discussion nursing staff reported the patient denies any perceptional disturbances at this time and has been compliant with treatment. Patient was found lying hospital bed noted be superficially cooperative. Patient states that he was angry at his mother for hanging up on him and that his mother was upset at him after he had broke several items in the home which he blames to her due to his recent intoxication with cocaine and heroin. Patient states that he lives with his parents that his mother had visited him yesterday which visit had gone "not so good" but did not want to elaborate why. Patient states he is interested in engaging rehabilitation program for substance use. Patient denies any suicide ideation for the past couple of days as well as denying any perceptional services recently. Patient states his mood has been "good". Collateral from patient's mother, Jaleesa Johnson [phone], states that yesterday's visit patient was "very dove", left early after patient's stated he didn't want to go back home with her. She states that patient does well when he doesn't do drugs. She wants patient to engage in rehabilitation program. Review of Systems Except as stated in HPI: all other systems reviewed are Neg Mental Status Examination Appearance: Disheveled Consciousness: Alert Orientation: x4 Motor Activity: Normal gait Speech: Hesitant, Slow Language: Adequate Fund of Knowledge: Adequate Attention and Concentration: Inadequate Memory: Unremarkable Mood: Sad Affect: Blunt Thought Process & Associations: Intact Thought Content: Hallucinations Hallucination Type: Auditory (To kill himself) Delusion Type: None (Command type to hurt himself) Suicidal Ideation: Yes (Fleeting) Suicidal Plan: No Suicidal Intention: No Homicidal Ideation: No Homicidal Plan: No Homicidal Intention: No Insight: Poor Judgment: Impulsive Results Vitals/IOs Vital Signs Date Time Temp Pulse Resp B/P (MAP) Pulse Ox O2 Delivery O2 Flow Rate FiO2 02/05/18 16:42 98.6 58 18 120/63 (82) 96 02/02/18 14:15 Room Air Assessment & Plan Problem List: (1) Schizoaffective disorder ICD Codes: F25.9 - Schizoaffective disorder Status: Acute Assessment & Plan Patient continues to to be guarded, continues to require further stabilization, has been compliant with treatment. We will increase trazodone to 150 mg p.o. at bedtime for sleep disturbance, continue rest of treatment regimen. Will continue to monitor mood and behavior. Treatment team will explore options for patient to engage in rehabilitation program and/or sober living. Discharge planning in progress. Justification for Cont. Inpt. At risk for further decompensation if at lower level of care Albin Lee MD Feb 05, 2018 18:36
[2018-02-05] MEDS: traZODone HCL 100 MG TAB PO SCH (20:07)
[2018-02-05] MEDS: REMOVE OLD NICODERM (NICOTINE) PATCH T-DERMAL SCH (20:07)
[2018-02-06 05:57] VITALS: PULSE 66; RESP 18; TEMP 97.7; O2SAT 98
[2018-02-06 06:42] VITALS: PULSE 66; RESP 18; TEMP 97.7; O2SAT 98
[2018-02-06] MEDS: ESCITALOPRAM OXALATE 10 MG TAB PO SCH (08:41)
[2018-02-06] MEDS: ARIPiprazole 30 MG TAB PO SCH (08:41)
[2018-02-06] MEDS: NICOTINE 21 MG/24 HR PATCH T-DERMAL SCH (08:42)
--- NOTE | 2018-02-06 12:26 | HHI.PYPN ---
Subjective Remarks Patient seen for follow, chart reviewed. Discussion nursing staff reported patient has been mostly seclusive, but compliant medications, slept better last evening no behavioral issues since admission. Patient was found I am really on unit noted B, cooperative. Patient states that he is feeling "good" reports having had visited by his mother yesterday which went well. He states that he is okay with going to rehabilitation program for substance use and believes medications are working but continues to have fleeting intermittent auditory hallucinations still but states they are decreasing. Review of Systems Except as stated in HPI: all other systems reviewed are Neg Mental Status Examination Appearance: Disheveled Consciousness: Alert Orientation: x4 Motor Activity: Normal gait Speech: Hesitant, Slow Language: Adequate Fund of Knowledge: Adequate Attention and Concentration: Inadequate Memory: Unremarkable Mood: Sad Affect: Blunt Thought Process & Associations: Intact Thought Content: Hallucinations Hallucination Type: Auditory (To kill himself) Delusion Type: None Suicidal Ideation: No Suicidal Plan: No Suicidal Intention: No Homicidal Ideation: No Homicidal Plan: No Homicidal Intention: No Insight: Poor Judgment: Impulsive Results Vitals/IOs Vital Signs Date Time Temp Pulse Resp B/P (MAP) Pulse Ox O2 Delivery O2 Flow Rate FiO2 02/06/18 06:42 97.7 66 18 98 02/02/18 14:15 Room Air Assessment & Plan Problem List: (1) Schizoaffective disorder ICD Codes: F25.9 - Schizoaffective disorder Status: Acute Assessment & Plan Patient at this time noted to be more reactive during interview, he, cooperative with treatment and staff. Patient continues to endorse auditory hallucinations but are decreasing. We will continue current treatment. We will continue to monitor mood and behavior. Treatment team explore possibility of patient being referred to rehabilitation program for substance use which appears to be one of the many factors for his recent behavioral dyscontrol. Discharge planning in progress. Justification for Cont. Inpt. At risk for further decompensation if at lower level of care Albin Lee MD Feb 06, 2018 12:26
[2018-02-06 17:19] VITALS: BP 116/59; PULSE 77; RESP 18; TEMP 97.5; O2SAT 99
[2018-02-06] MEDS: traZODone HCL 100 MG TAB PO SCH (20:49)
[2018-02-06] MEDS: REMOVE OLD NICODERM (NICOTINE) PATCH T-DERMAL SCH (20:50)
[2018-02-07 05:40] VITALS: BP 109/62; PULSE 69; RESP 18; TEMP 97.8; O2SAT 100
[2018-02-07] MEDS: NICOTINE 21 MG/24 HR PATCH T-DERMAL SCH (08:37)
[2018-02-07] MEDS: ARIPiprazole 30 MG TAB PO SCH (08:37)
[2018-02-07] MEDS: ESCITALOPRAM OXALATE 10 MG TAB PO SCH (08:37)
--- NOTE | 2018-02-07 10:19 | PD.TTN ---
Patient Problems 1. Discharge planning 2. Medication compliance 3. Knowledge deficit 4. Lack of coping skills Progress Toward Goals Provider Present: Dr. Alis Lee Provider Input: Patient doing better. Patient wants to go to rehab. Patient is denying suicidal and homicidal ideation. Patient wants to sign voluntarily Nurse(s) Input: Patient's nurse reports patient is medication compliant, pleasant, no behavioral problem on unit Psychiatric Counselors Present: Marge Olvera [facility] Psych Therapist Input: Patient presented pleasant and cooperative. Patient is eager to find out about rehabs. Patient made good eye contact. Patient denies suicidal and homicidal ideation. Patient's speech is clear but delayed, patient states he is not hearing voices, however patient does appear to be hearing them. Patient reports eating and sleeping well. Group Spec/RT/OT/MIN Present: PHILIP Patricia Group Spec/RT/OT/MIN Input: Patient attends the group activities with good participation. No behaviors to note Marge Olvera [facility] Feb 07, 2018 10:19
--- NOTE | 2018-02-07 11:38 | HHI.PYPN ---
Subjective Remarks Patient seen for follow, chart reviewed. Discussion nursing staff reported the patient was still having auditory hallucination at times but more visible on the unit. Patient was found in the room notably, cooperative. Patient state he slept well, denies having auditory hallucinations despite nursing report stating that he continues to have occasional auditory hallucinations. He reports having been visited by his mother 2 days ago and has spoken to her over the phone yesterday which he states went well. Reiteration of importance of patient engaging in rehabilitation program substance use was reviewed which he agrees to as well as importance of adherence to current medication regimen. Review of Systems Except as stated in HPI: all other systems reviewed are Neg Mental Status Examination Appearance: Disheveled Consciousness: Alert Orientation: x4 Motor Activity: Normal gait Speech: Hesitant, Slow Language: Adequate Fund of Knowledge: Adequate Attention and Concentration: Inadequate Memory: Unremarkable Mood: Sad Affect: Blunt Thought Process & Associations: Intact Thought Content: Hallucinations Hallucination Type: Auditory (Decreasing) Delusion Type: None Suicidal Ideation: No Suicidal Plan: No Suicidal Intention: No Homicidal Ideation: No Homicidal Plan: No Homicidal Intention: No Insight: Poor Judgment: Impulsive Results Vitals/IOs Vital Signs Date Time Temp Pulse Resp B/P (MAP) Pulse Ox O2 Delivery O2 Flow Rate FiO2 02/07/18 05:40 97.8 69 18 109/62 (78) 100 Assessment & Plan Problem List: (1) Schizoaffective disorder ICD Codes: F25.9 - Schizoaffective disorder Status: Acute Assessment & Plan Patient this time appears to be more engaging with staff, reporting decrease in perceptual services and noted to be more organized during interview today. Patient not noted to be less isolative and noted to be participatory more now. We will continue to monitor with behavior. Treatment team will explore referrals to rehabilitation programs. Discharge planning in progress. Justification for Cont. Inpt. At risk for further decompensation if at lower level of care Albin Lee MD Feb 07, 2018 11:38
[2018-02-07 16:35] VITALS: BP 126/63; PULSE 85; RESP 18; TEMP 98.1; O2SAT 99
[2018-02-07] MEDS: traZODone HCL 100 MG TAB PO SCH (20:12)
[2018-02-07] MEDS: REMOVE OLD NICODERM (NICOTINE) PATCH T-DERMAL SCH (20:30)
[2018-02-08 05:45] VITALS: BP 113/57; PULSE 73; RESP 16; TEMP 97.7; O2SAT 99
[2018-02-08] MEDS: NICOTINE 21 MG/24 HR PATCH T-DERMAL SCH (09:50)
[2018-02-08] MEDS: ESCITALOPRAM OXALATE 10 MG TAB PO SCH (09:50)
[2018-02-08] MEDS: ARIPiprazole 30 MG TAB PO SCH (09:50)
[2018-02-08] MEDS ORDERED: ESCI10TA PO (10:43)
[2018-02-08] MEDS ORDERED: ABIL30TA5 PO (10:43)
[2018-02-08] MEDS ORDERED: TRAZ50TA12 PO (10:43)
--- NOTE | 2018-02-08 14:42 | HHI.PYPN ---
Subjective Remarks Patient seen for follow, chart reviewed. Discussion nursing staff reported the patient has a more visible, more social continues with flat affect but denying any perceptional services, suicidal homicidal ideations. Patient was found in day room noted B, cooperative. Patient continues to have flat affect but states that he is feeling "good" denying any perceptual disturbances saying the medication is helping, denying any SI or HI. Patient states he has been visited by mother yesterday which she states went well as they both agree that patient would benefit from rehabilitation program which he is still interested in. Review of Systems Except as stated in HPI: all other systems reviewed are Neg Mental Status Examination Appearance: Disheveled Consciousness: Alert Orientation: x4 Motor Activity: Normal gait Speech: Hesitant, Slow Language: Adequate Fund of Knowledge: Adequate Attention and Concentration: Inadequate Memory: Unremarkable Mood: Good Affect: Blunt Thought Process & Associations: Intact Thought Content: Hallucinations Hallucination Type: Auditory (Denied today) Delusion Type: None Suicidal Ideation: No Suicidal Plan: No Suicidal Intention: No Homicidal Ideation: No Homicidal Plan: No Homicidal Intention: No Insight: Poor Judgment: Impulsive Results Vitals/IOs Vital Signs Date Time Temp Pulse Resp B/P (MAP) Pulse Ox O2 Delivery O2 Flow Rate FiO2 02/08/18 05:45 97.7 73 16 113/57 (75) 99 Assessment & Plan Problem List: (1) Schizoaffective disorder ICD Codes: F25.9 - Schizoaffective disorder Status: Acute Assessment & Plan Patient this time now noted be more visible, reporting cessation of auditory hallucinations today, but continues to have flat affect. Patient agreeable to rehabilitation program which treatment team is currently attempted to contact patient with. Patient likely for discharge tomorrow either back home to wait for acceptance to rehab program or directly to the rehabilitation program if availability is present. Continue current treatment. Continue monitor mood and behavior. Discharge planning in progress. Justification for Cont. Inpt. At risk for decompensation at lower level of care. Albin Lee MD Feb 08, 2018 14:42
[2018-02-08 16:30] VITALS: BP 125/71; PULSE 86; RESP 17; TEMP 97.5; O2SAT 98
[2018-02-08] MEDS: REMOVE OLD NICODERM (NICOTINE) PATCH T-DERMAL SCH (21:00)
[2018-02-08] MEDS: traZODone HCL 100 MG TAB PO SCH (21:15)
[2018-02-09 06:00] VITALS: BP 115/56; PULSE 59; RESP 18; TEMP 97.6; O2SAT 99
[2018-02-09] MEDS: ESCITALOPRAM OXALATE 10 MG TAB PO SCH (08:16)
[2018-02-09] MEDS: ARIPiprazole 30 MG TAB PO SCH (08:16)
[2018-02-09] MEDS: NICOTINE 21 MG/24 HR PATCH T-DERMAL SCH (08:18)
--- NOTE | 2018-02-09 15:06 | HHI.DS ---
Psychiatry Discharge Summary Inpatient Psychiatric care?: Yes Advance Directive: No Reason Not Provided: Due to Patient Condition Mental Health AdvanceDirective: No Health Care Proxy: Yes Admission Admission Date Feb 02, 2018 at 14:22 Admission Diagnosis: (1) Schizoaffective disorder ICD Code: F25.9 - Schizoaffective disorder Brief History The patient is 22-year-old man, single, domiciled in [place] with his father, supported by [facility], with past psychiatric history of schizophrenia, substance abuse, including cocaine, cannabis, heroine, alcohol, multiple psychiatric hospitalizations, last hospitalization was in 2016 under the care of Dr. Lee, the patient is on trazodone 100 mg, Abilify 30 mg, Lexapro 10 mg , prescribed by psychiatrist in [facility], no significant medical history, who presents to the ED under [place] act initiated by law enforcement for psychiatric evaluation. The Keen act alleges that the patient has been noncompliant with prescribed psychiatric medication and has demonstrated increase in angry and violent behavior at home allegedly destroying things around the home. His mother reports that she is afraid of his potential to harm himself or as well as others at this time. In addition the patient has been intermittently using both cocaine and marijuana. He also reports intermittent use of heroin. The patient is reporting at this time increase in command auditory hallucinations that "tell me to kill myself". He reports that he has been hearing the voices for approximately 3 weeks but that they have become more prominent in the last couple of days. He admits to last taking his psychiatric medication 4 days ago.Electronic medical record is reviewed. The patient has had 11 past hospitalizations to [facility] psychiatry Department. His first contact was at age 16 when he began treatment with Dr. Man Staley. His last hospitalization was in July 2017 and this was also in context of medication nonadherence and use of substances. Current toxicology is positive for cocaine and cannabinoids. No lithium level has been drawn in the ED. Since patient arrived on the unit he has been somewhat isolative and withdrawn. He has not been agitated or aggressive.The patient is seen for psychiatric evaluation in the ER, is calm, cooperative, he seems to be decade and distended. He is awake , alert, dressed in [facility] with disheveled appearance. His affect is blunted. Maintains little eye contact. His speech is very low tone. Patient reports continued auditory hallucination command type that tell him to harm himself. He also admits to impaired sleep, low energy level, anhedonia, variable level of energy. Mood is described as depressed. He does not verbalize suicidal ideation. Does not verbalize suicidal ideation at this time. Tobacco Use In Past 30 Days: 5 or More Cigarettes/Day Alcohol Use: Monthly or Less Hospital Course The patient is 22-year-old man, single, domiciled in [place] with his father, supported by [facility], with past psychiatric history of schizophrenia, substance abuse, including cocaine, cannabis, heroine, alcohol, multiple psychiatric hospitalizations, last hospitalization was in 2017 under the care of Dr. Lee, the patient is on trazodone 100 mg, Abilify 30 mg, Lexapro 10 mg , prescribed by psychiatrist in [facility], no significant medical history, who presents to the ED under [place] act initiated by law enforcement for psychiatric evaluation. Patient was continued on aripiprazole 10mg PO daily and increased to 30mg PO daily, trazodone 150mg PO daily and Lexapro 10mg PO daily which he tolerated well with minimal effect. Patient continued to endorse feeling auditory hallucinations which subsided as his admission progressed during hospitalization. Patient was adherent to medication regimen and began to have improvement in mood, was noted to maintain hygiene and participate in groups and activities. Upon discharge patient stated feeling good, stated feeling okay with returning back to his home with his mother; noted to be calm and cooperative with staff. Patient was counseled abstinence from substance use continue with interested to engage in a rehabilitations program for substance use. He agreed to continuing medical recommendations, treatment and cooperate for continuity of care. Patient; denies SI, HI, AVH or delusions. Supportive psychotherapy provided. Suicide and violence risk assessment on day of discharge both suggest lower imminent risk, and the patient's level of function is adequate for planned level of outpatient care. Patient has maximized benefit from this inpatient psychiatric hospital stay and to return to psychiatric emergency room for any concerning psychiatric symptoms. Patient agrees with plan. Results Blood Pressure 115 / 56 Vital Signs Date Time Temp Pulse Resp B/P (MAP) Pulse Ox O2 Delivery O2 Flow Rate FiO2 02/09/18 06:00 97.6 59 18 115/56 (75) 99 Laboratory Results Test 02/03/18 05:58 Cholesterol Level 173 MG/DL (120-200) HDL Cholesterol 25.2 MG/DL (40.0-60.0) Hemoglobin A1c 4.9 % (4.3-6.0) LDL Cholesterol 91 MG/DL (0-99) Triglycerides Level 282 MG/DL (42-150) Summary of Procedures none Pending results at discharge: No Medications # of Antipsychotic meds at D/C: 1 Approp Antipsych med options 1 - Minimum of three failed multiple trials of monotherapy. 2 - Documented plan to taper to monotherapy due to previous use of multiple meds OR cross-taper in progress at D/C. 3 - Documentation of augmentation of Clozapine. 4 - Justification other than those listed in allowable values 1-3, document here : Discharge Discharge Date: Feb 09, 2018 Discharge Diagnosis: (1) Schizoaffective disorder ICD Code: F25.9 - Schizoaffective disorder Status: Acute Pt Condition on Discharge: Stable Discharge Disposition: Discharge Home Discharge Instructions Diet Instructions: As Tolerated, No Restrictions Activities you can perform: Regular-No Restrictions Scheduled Appointment: [facility] Appointment Date: Feb 12, 2018 Appointment Time: 8a-3p Discharge Time > 30 minutes Mental Status Examination Appearance: Appropriate Consciousness: Alert Orientation: x4 Motor Activity: Normal gait Speech: Unremarkable Language: Adequate Fund of Knowledge: Adequate Attention and Concentration: Adequate Memory: Unremarkable Mood: Good Affect: Blunt Thought Process & Associations: Intact Thought Content: Appropriate Hallucination Type: None Delusion Type: None Suicidal Ideation: No Suicidal Plan: No Suicidal Intention: No Homicidal Ideation: No Homicidal Plan: No Homicidal Intention: No Insight: Adequate Judgment: Adequate Discharge/Advance Care Plan Health Problems: (1) Schizoaffective disorder Goals to promote your health * To prevent worsening of your condition and complications * To maintain your health at the optimal level Directions to meet your goals Take your medications as prescribed Follow your dietary instruction Follow activity as directed Keep your appointments as scheduled Take your immunizations and boosters as scheduled If your symptoms worsen call your PCP, if no PCP go to Urgent Care Center or Emergency Room For 15/05 questions related to your inpatient stay or results of tests pending at discharge, please contact Dr. Albin Lee at Smoking is Dangerous to Your Health. Avoid second hand smoking Albin Lee MD Feb 09, 2018 15:06
== END 2018-02-09 15:18 | disposition home or self-care (01) | DRG 885 ==
LOC: NEPJ 16:15 → NEDA 02-02 14:22 → H270 02-02 16:50
PROVIDERS: ADMIT Student in an Organized Health Care Education/Training Program; ATTEND Student in an Organized Health Care Education/Training Program
DX: F25.0 Schizoaffective disorder, bipolar type (principal); Z68.41 Body mass index [BMI] 40.0-44.9, adult; R45.851 Suicidal ideations; F90.9 Attention-deficit hyperactivity disorder, unspecified type; F14.10 Cocaine abuse, uncomplicated; F12.10 Cannabis abuse, uncomplicated; F11.10 Opioid abuse, uncomplicated; F10.10 Alcohol abuse, uncomplicated; I10 Essential (primary) hypertension; E66.9 Obesity, unspecified; J45.909 Unspecified asthma, uncomplicated; K44.9 Diaphragmatic hernia without obstruction or gangrene; F17.210 Nicotine dependence, cigarettes, uncomplicated; Y90.0 Blood alcohol level of less than 20 mg/100 ml; Z88.1 Allergy status to other antibiotic agents; Z91.14 Patient's other noncompliance with medication regimen
CPT/HCPCS: 80048; 80053; 80061; 80307; 83036; 84443; 85025